=== PATIENT | female | born 1935 | race Caucasian/White ===

== ENCOUNTER 2016-12-25 09:32 | Outpatient (CLI) | payer MEDICARE ==
[2016-12-25 10:29] LABS: #Basophils 0.1 thou/uL (0.0-0.2); #Eosinphils 0.3 thou/uL (0.0-0.7); #Lymphocytes 2.3 thou/uL (1.20-3.40); #Monocytes 1.3 thou/uL (0.11-0.59); #Neutrophils 5.5 thou/uL (1.40-6.50); %Basophils 1.3 % (0.0-1.0); %Eosinophils 2.7 % (0.0-10.0); %Lymphocytes 24.7 % (21.0-51.0); %Monocytes 13.4 % (0.0-10.0); Hemoglobin 13.6 g/dL (12.0-16.0); Mean Corpuscular Hemoglobin 33.1 pg (27.0-31.0); Mean Corpuscular Volume 100.3 fl (81.0-99.0); Mean Platelet Volume 8.6 fL (7.4-10.4); Platelet Count 126 thou/uL (130-400); RBC Distribution Width 11.1 % (11.5-14.5); Red Blood Cell (RBC) Count 4.11 mill/uL (4.20-5.40); White Blood Cell (WBC) Count 9.4 thou/uL (4.8-10.8)
[2016-12-25 10:33] LABS: ALT (SGPT) 45 U/L (0-55); AST (SGOT) 25 U/L (5-34); Albumin 4.4 g/dL (3.4-4.8); Alkaline Phosphatase 63 U/L (40-150); Anion Gap 16 mmol/L (10-20); BUN (Urea Nitrogen) 28 mg/dL (9.8-20.1); Bilirubin, Total 0.7 mg/dL (0.2-1.2); Calc. Creatinine Clearance 0 mL/min (70-130); Calcium 9.2 mg/dL (7.8-10.44); Carbon Dioxide 28 mmol/L (23-31); Cardiac Risk 2.3 (Less than 4.5); Chloride 101 mmol/L (98-107); Cholesterol 218 mg/dL (< 200 Desired); Estimated GFR-MDRD 49; Globulin 2.4 g/dL (2.4-3.5); Glucose 125 mg/dL (83-110); HDL Cholesterol 94 mg/dL (>60 Neg Risk); LDL Cholesterol, Calculated 108 mg/dL; Potassium 4.6 mmol/L (3.5-5.1); Protein, Total 6.8 g/dL (5.8-8.1); Sodium 140 mmol/L (136-145); Triglycerides 80 mg/dL (Less than 150)
[2016-12-25 11:11] LABS: Bilirubin Negative (Negative); Blood, Urine Negative (Negative); Clarity Clear (Clear); Glucose, Urine (Dipstick) Negative (Negative); Leukocyte Small (Negative); Nitrite Negative (Negative); Protein, Urine (Dipstick) Negative (Neg-Trace); Specific Gravity, Urine 1.015 (1.005-1.030); Urobilinogen 0.2 mg/dL (0.2-1.0)
[2016-12-25 11:12] LABS: Free T4 (Free Thyroxine) 1.04 ng/dL (0.70-1.48); Thyroid Stimulating Hormone 0.7837 uIU/mL (0.35-4.94)
[2016-12-25 11:16] LABS: RBC/HPF 0-3 HPF (0-3); WBC/HPF 0-3 HPF (0-3)
[2016-12-25 11:18] LABS: Bacteria/HPF Rare-Few HPF (None Seen); Squamous Epithelial 0-3 HPF (0-3)
== END 2016-12-25 09:33 | disposition home or self-care (01) ==
LOC: MADLABBHPM 09:32
PROVIDERS: ATTEND Family Medicine
DX: Z00.01 Encounter for general adult medical examination with abnormal findings (principal)
CPT/HCPCS: 36415; 80053; 80061; 81001; 83036; 84439; 84443; 84481; 85025

== ENCOUNTER 2017-05-20 16:57 | Outpatient (CLI) | payer MEDICARE ==
[2017-05-20 17:34] LABS: ALT (SGPT) 22 U/L (8-55); AST (SGOT) 21 U/L (5-34); Albumin 4.2 g/dL (3.4-4.8); Alkaline Phosphatase 62 U/L (40-150); Anion Gap 15 mmol/L (10-20); BUN (Urea Nitrogen) 19 mg/dL (9.8-20.1); Bilirubin, Total 0.6 mg/dL (0.2-1.2); Calc. Creatinine Clearance 0 mL/min (70-130); Calcium 9.4 mg/dL (7.8-10.44); Carbon Dioxide 25 mmol/L (23-31); Chloride 102 mmol/L (98-107); Estimated GFR-MDRD 58; Globulin 3.1 g/dL (2.4-3.5); Glucose 145 mg/dL (83-110); Potassium 4.4 mmol/L (3.5-5.1); Protein, Total 7.3 g/dL (6.0-8.3); Sodium 138 mmol/L (136-145)
[2017-05-20 17:50] LABS: Band 1 % (5-11); Eosinophils 1 % (0-10); Hemoglobin 14.1 g/dL (12.0-16.0); Lymphocytes 26 % (21-51); MDiff Complete? YES; Mean Corpuscular HGB CONC 33.4 g/dL (32.0-36.0); Mean Corpuscular Hemoglobin 33.1 pg (27.0-31.0); Mean Corpuscular Volume 98.9 fl (81.0-99.0); Mean Platelet Volume 7.2 fL (7.4-10.4); Monocytes 6 % (0-10); Neutrophil 63 % (42-75); PLT Morphology Comment Appears Adequate; Platelet Count 161 thou/uL (130-400); RBC Distribution Width 11.5 % (11.5-14.5); Reactive Lymphocytes 3 % (0-10); Red Blood Cell (RBC) Count 4.25 mill/uL (4.20-5.40); White Blood Cell (WBC) Count 10.1 thou/uL (4.8-10.8)
== END 2017-05-20 16:58 | disposition home or self-care (01) ==
LOC: MADLABBHPM 16:57
PROVIDERS: ATTEND Family Medicine
DX: R10.13 Epigastric pain (principal); R14.0 Abdominal distension (gaseous); R19.5 Other fecal abnormalities
CPT/HCPCS: 36415; 80053; 85025

== ENCOUNTER 2017-06-01 15:51 | Outpatient (CLI) | payer MEDICARE ==
[~2017-06-01 15:51] MED LIST: Iopamidol 370 76% 100 ML VIAL ONE
--- NOTE | 2017-06-01 19:44 | CT ---
CT OF THE ABDOMEN AND PELVIS: Date: 06-01-17 Comparison: None. History: Epigastric pain, bloating, dark stool. Technique: Serial axial CT imaging at 5 mm intervals from lung bases through pubic symphysis with IV and oral contrast. Coronal reformatted imaging obtained. FINDINGS: The imaged lung bases are unremarkable. Incompletely imaged transvenous pacing device is present. No evidence for free intraperitoneal air or fluid. Bilateral total hip arthroplasties are present. There are multiple hypodensities within the hepatic parenchyma superiorly, many of which are too sma ll to characterize, likely representing small cysts. Gallbladder appears surgically absent. The sple en, pancreas, adrenal glands, and kidneys demonstrate no acute findings. Duodenal diverticulum noted . Streak artifact from bilateral hip arthroplasties slightly limits assessment of the pelvis. Scatte red diverticula noted in the region of the sigmoid colon. No evidence for diverticulitis. No evidenc e for bowel inflammatory change/bowel obstruction. Stomach is decompressed and not well assessed on this exam. There is extensive atherosclerotic calcification of the abdominal aorta and its branches. No pelvic, mesenteric or retroperitoneal lymphadenopathy is seen. There is prominent multilevel deg enerative change seen throughout the spine, especially the lumbar spine, with associated dextroscoli osis. IMPRESSION: 1. Numerous incidental findings as described above. No evidence for free intraperitoneal air or flui d, bowel inflammatory change or bowel obstruction. POS: JASS
== END 2017-06-01 15:52 | disposition home or self-care (01) ==
LOC: MADCT 15:51
PROVIDERS: ATTEND Family Medicine
DX: R10.13 Epigastric pain (principal); R14.0 Abdominal distension (gaseous); R19.5 Other fecal abnormalities
CPT/HCPCS: 36415; 74177; 82565

== ENCOUNTER 2017-12-04 14:50 | Outpatient (CLI) | payer MEDICARE ==
[2017-12-04 15:35] LABS: #Basophils 0.1 thou/uL (0.0-0.2); #Eosinphils 0.3 thou/uL (0.0-0.7); #Lymphocytes 1.9 thou/uL (1.20-3.40); #Monocytes 1.1 thou/uL (0.11-0.59); #Neutrophils 6.4 thou/uL (1.40-6.50); %Basophils 1.3 % (0.0-1.0); %Lymphocytes 19.6 % (21.0-51.0); %Monocytes 11.5 % (0.0-10.0); %Neutrophils 64.7 % (42.0-75.0); Hemoglobin 13.2 g/dL (12.0-16.0); Mean Corpuscular HGB CONC 33.5 g/dL (32.0-36.0); Mean Corpuscular Hemoglobin 33.9 pg (27.0-31.0); Mean Platelet Volume 7.7 fL (7.4-10.4); Platelet Count 160 thou/uL (130-400); RBC Distribution Width 11.9 % (11.5-14.5); White Blood Cell (WBC) Count 9.8 thou/uL (4.8-10.8)
[2017-12-04 15:47] LABS: ALT (SGPT) 17 U/L (8-55); AST (SGOT) 21 U/L (5-34); Albumin 3.9 g/dL (3.4-4.8); Alkaline Phosphatase 66 U/L (40-150); Anion Gap 17 mmol/L (10-20); BUN (Urea Nitrogen) 17 mg/dL (9.8-20.1); Bilirubin, Total 0.8 mg/dL (0.2-1.2); Calc. Creatinine Clearance 0 mL/min (70-130); Calcium 9.3 mg/dL (7.8-10.44); Carbon Dioxide 26 mmol/L (23-31); Cardiac Risk 3.4 (Less than 4.5); Chloride 102 mmol/L (98-107); Cholesterol 158 mg/dl (< 200 Desired); Estimated GFR-MDRD 55; Glucose 142 mg/dL (83-110); HDL Cholesterol 47 mg/dL (>60 Neg Risk); LDL Cholesterol, Calculated 75 mg/dL; Potassium 4.8 mmol/L (3.5-5.1); Protein, Total 6.9 g/dL (6.0-8.3); Sodium 140 mmol/L (136-145); Triglycerides 180 mg/dL (Less than 150)
[2017-12-04 20:27] LABS: Hemoglobin A1c 6.8 % (4.0-6.0)
[2017-12-04 20:47] LABS: Free T4 (Free Thyroxine) 1.19 ng/dL (0.70-1.48)
== END 2017-12-04 14:51 | disposition home or self-care (01) ==
LOC: MADLABBHPM 14:50
PROVIDERS: ATTEND Family Medicine
DX: E11.9 Type 2 diabetes mellitus without complications (principal); E78.5 Hyperlipidemia, unspecified; E03.9 Hypothyroidism, unspecified; F17.200 Nicotine dependence, unspecified, uncomplicated; M35.3 Polymyalgia rheumatica; K21.9 Gastro-esophageal reflux disease without esophagitis
CPT/HCPCS: 36415; 80053; 80061; 83036; 84439; 84443; 85025

== ENCOUNTER 2018-08-27 14:05 | Outpatient (CLI) | payer MEDICARE ==
--- NOTE | 2018-08-27 16:00 | CT ---
CT ABDOMEN AND PELVIS WITH IV CONTRAST 08/27/18 HISTORY: Change in stool caliber. Shortness of breath and abdominal bloating. COMPARISON: 06/01/17. FINDINGS: Again noted is partial visualization of AICD leads. Postsurgical changes related to cholecystectomy a re again noted. There are stable hypodense cystic lesions within each lobe of the liver, probably rel ated to hepatic cysts. Calcification is seen near the region of the splenic hilum which may represen t a calcified granuloma or possibly peripherally calcified splenic cystic lesion. This measures 8 mm and is stable in size. The pancreas, bilateral adrenal glands, kidneys, and opacified bowel demonstrate a normal CT appeara nce. There is colonic diverticulosis. Dense vascular calcifications are seen in the abdominal aorta involv ing the iliac arteries. There are bilateral total hip prosthesis resulting in significant spray artifact in the pelvis limiti ng evaluation of the pelvic structures including urinary bladder. The uterus again appears absent lik marilu related to prior hysterectomy. Multilevel degenerative changes again see in the lumbar spine with right convexed scoliosis. There is right lateral subluxation of L4 on L5 which is a stable finding. Previously seen duodenal diverticulum involving the second portion of the duodenum is again noted. There has been no interval change when compared to the prior exam. There is atelectasis present at each lung base. IMPRESSION: 1. Stable CT scan of the abdomen and pelvis without evidence of an acute abnormality identified. 2. Multiple incidental findings are as described above. POS: JASS
== END 2018-08-27 14:06 | disposition home or self-care (01) ==
LOC: MADLABBHPM 14:05
PROVIDERS: ATTEND Family Medicine
DX: R14.0 Abdominal distension (gaseous) (principal); R10.84 Generalized abdominal pain; R19.4 Change in bowel habit; Z87.19 Personal history of other diseases of the digestive system
CPT/HCPCS: 36415; 74177; 82565

== ENCOUNTER 2018-11-24 14:47 | Outpatient (CLI) | payer MEDICARE ==
[2018-11-24 15:17] LABS: #Basophils 0.1 thou/uL (0.0-0.2); #Eosinphils 0.2 thou/uL (0.0-0.7); #Lymphocytes 1.7 thou/uL (1.20-3.40); #Neutrophils 7.7 thou/uL (1.40-6.50); %Basophils 0.8 % (0.0-1.0); %Eosinophils 1.8 % (0.0-10.0); %Lymphocytes 15.9 % (21.0-51.0); %Monocytes 9.5 % (0.0-10.0); Hemoglobin 13.4 g/dL (12.0-16.0); Mean Corpuscular HGB CONC 33.4 g/dL (32.0-36.0); Mean Corpuscular Hemoglobin 33.6 pg (27.0-31.0); Mean Corpuscular Volume 100.7 fL (78.0-98.0); Mean Platelet Volume 6.9 fL (7.4-10.4); Platelet Count 179 thou/uL (130-400); RBC Distribution Width 11.9 % (11.5-14.5); White Blood Cell (WBC) Count 10.7 thou/uL (4.8-10.8)
[2018-11-24 15:31] LABS: ALT (SGPT) 21 U/L (8-55); AST (SGOT) 21 U/L (5-34); Alkaline Phosphatase 73 U/L (40-150); Anion Gap 18 mmol/L (10-20); BUN (Urea Nitrogen) 17 mg/dL (9.8-20.1); Bilirubin, Total 0.6 mg/dL (0.2-1.2); Calc. Creatinine Clearance 0 mL/min (70-130); Calcium 9.5 mg/dL (7.8-10.44); Carbon Dioxide 24 mmol/L (23-31); Chloride 101 mmol/L (98-107); Estimated GFR-MDRD 51; Glucose 259 mg/dL (83-110); Potassium 4.5 mmol/L (3.5-5.1); Sodium 138 mmol/L (136-145)
== END 2018-11-24 14:48 | disposition home or self-care (01) ==
LOC: MADLAB 14:47
PROVIDERS: ATTEND Pain Medicine Pain Medicine
DX: Z01.812 Encounter for preprocedural laboratory examination (principal); E78.00 Pure hypercholesterolemia, unspecified
CPT/HCPCS: 36415; 80053; 85025

== ENCOUNTER 2018-12-14 16:41 | Emergency (ER) | payer MEDICARE | END 2018-12-14 17:44 | disposition home or self-care (01) | LOC: MADERS 16:41 | DX: E09.9 Drug or chemical induced diabetes mellitus without complications (principal); T38.0X5A Adverse effect of glucocorticoids and synthetic analogues, initial encounter; I50.9 Heart failure, unspecified; J45.909 Unspecified asthma, uncomplicated; I47.1 Supraventricular tachycardia; K21.9 Gastro-esophageal reflux disease without esophagitis; F41.9 Anxiety disorder, unspecified; G62.9 Polyneuropathy, unspecified; E87.1 Hypo-osmolality and hyponatremia; E05.90 Thyrotoxicosis, unspecified without thyrotoxic crisis or storm; Z79.899 Other long term (current) drug therapy; Z79.82 Long term (current) use of aspirin; Z79.1 Long term (current) use of non-steroidal anti-inflammatories (NSAID); Z79.891 Long term (current) use of opiate analgesic | CPT/HCPCS: 36416; 99283 ==

== ENCOUNTER 2019-09-27 13:24 | Inpatient (IN) | payer MEDICARE ==
[2019-09-27 16:25] VITALS: BMI 22.8
[2019-09-27] MEDS ORDERED: Acetaminophen 325 MG TAB PO PRN (20:13)
[2019-09-27] MEDS ORDERED: Ondansetron ODT 4 MG TAB PO PRN (20:13)
[2019-09-27] MEDS ORDERED: Lidocaine Viscous Sol 2% 15 ml UD Cup SSW PRN (20:17)
[2019-09-27] MEDS ORDERED: Diclofenac Sodium [Diclofenac Sodium 1% Gel] 2 GM TOP PRN (20:17)
[2019-09-27] MEDS ORDERED: Nitroglycerin 0.4 MG TAB (25 Tab Bottle) SL PRN (20:17)
[2019-09-27] MEDS: Potassium Chloride 20 MEQ TAB PO SCH (20:54)
[2019-09-27] MEDS: Ferrous Sulfate 325 MG TAB PO SCH (20:55)
[2019-09-27] MEDS: Gabapentin 300 MG CAP PO SCH (20:55)
[2019-09-27] MEDS ORDERED: Furosemide 40 MG TAB PO SCH (21:00)
[2019-09-27] MEDS ORDERED: Atorvastatin Calcium 10 MG TAB PO SCH (21:00)
[2019-09-27] MEDS ORDERED: Loratadine 10 MG TAB PO SCH (21:00)
[2019-09-27] MEDS ORDERED: Losartan 25 MG TAB PO SCH (21:00)
[2019-09-27] MEDS: Magnesium Oxide [Magnesium] 250 MG PO SCH (21:17)
[2019-09-27] MEDS: Ticagrelor [Brilinta] 90 MG PO SCH (21:17)
[2019-09-27] MEDS: HYDROcodone/Acetaminophen 7.5/325 mg Tablet PO PRN (22:53)
[2019-09-28 05:31] LABS: #Basophils 0.1 thou/uL (0.0-0.2); #Eosinphils 0.3 thou/uL (0.0-0.7); #Lymphocytes 1.5 thou/uL (1.20-3.40); #Monocytes 1.5 thou/uL (0.11-0.59); #Neutrophils 6.9 thou/uL (1.40-6.50); %Basophils 1.2 % (0.0-1.0); %Eosinophils 3.1 % (0.0-10.0); %Lymphocytes 14.7 % (21.0-51.0); %Monocytes 14.5 % (0.0-10.0); %Neutrophils 66.5 % (42.0-75.0); Hemoglobin 10.9 g/dL (12.0-16.0); Mean Corpuscular HGB CONC 30.4 g/dL (32.0-36.0); Mean Corpuscular Hemoglobin 30.3 pg (27.0-31.0); Mean Corpuscular Volume 99.5 fL (78.0-98.0); Mean Platelet Volume 6.8 fL (7.4-10.4); Platelet Count 328 thou/uL (130-400); RBC Distribution Width 15.6 % (11.5-14.5); Red Blood Cell (RBC) Count 3.61 mill/uL (4.20-5.40); White Blood Cell (WBC) Count 10.4 thou/uL (4.8-10.8)
[2019-09-28 05:47] LABS: ALT (SGPT) 21 U/L (8-55); AST (SGOT) 26 U/L (5-34); Albumin 3.1 g/dL (3.4-4.8); Alkaline Phosphatase 58 U/L (40-110); Anion Gap 17 mmol/L (10-20); BUN (Urea Nitrogen) 14 mg/dL (9.8-20.1); Bilirubin, Total 0.5 mg/dL (0.2-1.2); Calc. Creatinine Clearance 54 mL/min (70-130); Calcium 8.3 mg/dL (7.8-10.44); Carbon Dioxide 22 mmol/L (23-31); Chloride 104 mmol/L (98-107); Estimated GFR-MDRD 83; Globulin 3.4 g/dL (2.4-3.5); Glucose 103 mg/dL (83-110); Potassium 4.1 mmol/L (3.5-5.1); Protein, Total 6.5 g/dL (6.0-8.3); Sodium 139 mmol/L (136-145)
[2019-09-28 06:53] VITALS: TEMP 97.7
--- NOTE | 2019-09-28 07:36 | HP ---
PRIMARY CARE PHYSICIAN: Rekha Luo MD REASON FOR ADMISSION: Hypotension, recent LAD and RCA stent, generalized weakness and acute respiratory distress. BRIEF HISTORY AND PHYSICAL: Ms. Pollock is an 84-year-old female, who was admitted to [facility] in [place], August 24, 2019 for an elective cardiac evaluation following worsening coronary artery disease and angina. The patient had an abnormal nuclear stress test and she has been having worsening of her symptoms. She does have a history of coronary artery disease, congestive heart failure, multiple extensive medical conditions. The patient underwent a cardiac catheterization and was noted to have an LAD and RCA stenosis. Due to multivessel coronary artery disease, a decision was made to go ahead and admit the patient into the hospital for possible multivessel stenting. The patient states she underwent procedure on August 25, 2019. The patient states postoperatively the hospitalization was complicated by fluid overload and she went into CHF. She went into acute respiratory failure and she admitted to be intubated. During this process, the patient unfortunately also suffering aspiration pneumonia and needed to be on oxygen and antibiotics. Majority of the history gotten from the patient and her daughter who stated that she sustained worsening of chronic anemia and also had to be transfused. The patient spent a total of one month in the hospital after a stent placement and she was severely deconditioned and the decision was made to transfer the patient to a skilled rehabilitation center. The patient was subsequently transferred to [facility] on Thursday of September 23, 2019. The patient was admitted under the medical physicist, Dr. Aguayo, but she eventually called my office requesting i take over her care since I have been her primary care doctor. Upon evaluation of patient in [place] facility today, she was very weak. The patient and daughter were very tearful, state she has not had any physical therapy since being in facility as facility does not have in House PT. She states her blood pressure has been very labile, low and the admitting physician, Dr. Aguayo has changed multiple of her medications, which were the medications the inspector crystal put her on. The patient and daughter were not comfortable for the patient to continue to stay in detention facility and requested to be transferred out due to recent cardiac surgery, hypotensive episode, and physical decondition. The patient was subsequently transferred to the medical floor here at [facility] in [place] to start physical therapy and adequate blood pressure management. Upon evaluation of the patient, she denies any chest pain. She complains of shortness of breath and still needing oxygen occasionally. The patient denies any palpitations. She states she has followup appointment with inspector crystal, Dr. Mercado at 11:30 a.m. tomorrow. She complains of being very deconditioned. She denies any nausea, vomiting, or dizziness. PAST MEDICAL HISTORY: Congestive heart failure, hyperlipidemia, hypertension, diabetes type 2, GERD, hiatal hernia, lactose intolerance, osteopenia, stasis dermatitis, asthma, Graves disease, polymyalgia rheumatica, arthritis, fibromyalgia, spinal stenosis, peripheral neuropathy. PAST SURGICAL HISTORY: Appendectomy, partial hysterectomy, cholecystectomy, right and left total hip replacements, eye surgery, pilonidal cyst removed, radioactive iodine treatment of thyroid, ICD battery replacement, CAD with stent placement in the LAD and RCA. ALLERGIES: ATENOLOL, CEFAZOLIN, CLARITHROMYCIN, SULFA, LEVAQUIN, BENADRYL. FAMILY HISTORY: Noncontributory. SOCIAL HISTORY: The patient lives alone. She denies any current tobacco use, alcohol use, or illicit drug use. MEDICATIONS: 1. Lipitor 20 at bedtime. 2. Calcium gluconate 650 b.i.d. 3. Carboxymethylcellulose one drop to each eye p.r.n. t.i.d. 4. Zyrtec 10 at bedtime. 5. Vitamin D3 2000 units daily. 6. Diclofenac topical 4 times a day. 7. Nexium 40 daily. 8. Ferrous sulfate 325 b.i.d. 9. Furosemide 40 b.i.d. 10. Gabapentin 300 t.i.d. 11. [place] 7.5/325 b.i.d. 12. Lactaid 3000 units t.i.d. before meals. 13. Levothyroxine 75 daily. 14. Lidocaine Viscous p.r.n. q.3 hours for dry mouth. 15. Losartan at bedtime 25 mg. 16. Lysine 500 daily. 17. Metoprolol succinate 25 b.i.d. 18. Magnesium oxide 250 q.i.d. 19. Multivitamin daily. 20. Nitroglycerin 0.4 every 5 minutes as needed p.r.n. chest pain. 21. Potassium chloride 20 mEq t.i.d. 22. Prednisone 2 mg daily. 23. Super C Complex. 24. Super B Complex. 25. Brilinta 90 b.i.d. 26. Aspirin 81 mg daily. REVIEW OF SYSTEMS: GENERAL: The patient complains of generalized weakness and fatigue. CARDIOVASCULAR: Denies chest pain, shortness of breath, palpitations. Complains of blood pressure issues. RESPIRATORY: Complaints of cough and occasional shortness of breath. GASTROINTESTINAL: Denies nausea, vomiting, diarrhea, or constipation. GENITOURINARY: Denies dysuria, hematuria, frequency, or urgency. MUSCULOSKELETAL: Complains of chronic back pain. NEUROLOGICAL: Denies any focal deficits. SKIN: Complains of some bruising from hospitalization. PHYSICAL EXAMINATION: VITAL SIGNS: Temperature 97.9, pulse 107, respirations 16, and O2 saturation 93 % on room air, blood pressure 113/70. GENERAL: The patient is alert, awake, oriented x3, in no apparent distress, sitting on the bed. HEENT: Normocephalic, atraumatic. Moist oral mucous membranes. Pupils are equal and reactive to light. NECK: Supple. No JVD. CARDIOVASCULAR: S1, S2. Regular rate and rhythm. No murmurs. LUNGS: Clear to auscultation bilaterally. No wheezing. ABDOMEN: Positive bowel sounds. Soft, nontender, nondistended. No guarding. No rebound. EXTREMITIES: No edema or erythema. NEUROLOGICAL: No focal deficits. ASSESSMENT: 1. Physical debility. 2. Labile blood pressure. 3. Status post coronary artery disease with multivessel stent placement. 4. Diabetes type 2.. 6. Fibromyalgia. 7. Arthritis. 8. polymyalgia rheumatica. 9. Dzxvg-rp-nabxidx anemia. 10. Congestive heart failure. PLAN: The patient has been admitted to [place] [facility]. We will consult Physical Therapy to help with skilled rehabilitation and gait strengthening prior to discharge to her home. We will consult Occupational Therapy to help with activities of daily living. We will monitor the patient closely for any hemodynamic instability. We will adjust blood pressure medicine and monitor the blood pressure closely and make changes as needed. Due to patient's CHF, we will be very careful with any fluid intake. We will place the patient on a strict I's and O's. We will monitor weight weekly. Acute on chronic anemia, we will monitor CBC closely. We will restart all patient's home medication. Anticipated length of stay greater than 3 days. The patient will benefit from rehabilitation also prior to discharge to her home. CODE STATUS: The patient is a DNR. This was confirmed by her with her daughter in the room. Job ID: [id number] [facility]
[2019-09-28] MEDS ORDERED: LACTASE 3000 UNIT PO SCH (08:00)
[2019-09-28] MEDS: HYDROcodone/Acetaminophen 7.5/325 mg Tablet PO PRN (08:14)
[2019-09-28] MEDS: Furosemide 40 MG TAB PO SCH ×2 (08:16→15:36)
[2019-09-28] MEDS: Potassium Chloride 20 MEQ TAB PO SCH ×2 (08:17→15:37)
[2019-09-28] MEDS: Gabapentin 300 MG CAP PO SCH ×2 (08:18→15:36)
[2019-09-28] MEDS: Ferrous Sulfate 325 MG TAB PO SCH (08:18)
[2019-09-28] MEDS: Magnesium Oxide [Magnesium] 250 MG PO SCH ×2 (08:25→15:35)
[2019-09-28] MEDS: Ticagrelor [Brilinta] 90 MG PO SCH (08:25)
[2019-09-28] MEDS ORDERED: HYDROcodone/Acetaminophen 7.5/325 mg Tablet PO SCH ×2 (08:30→21:00)
[2019-09-28] MEDS ORDERED: CALCIUM CARBONATE 600 MG PO SCH ×2 (09:00→21:00)
[2019-09-28] MEDS ORDERED: FLU VACC TS2019-20(65YR UP)/PF 180 MCG/0.5 ML SYRINGE IM ONE (09:00)
[2019-09-28] MEDS ORDERED: predniSONE 20 MG TAB PO SCH (09:00)
[2019-09-28] MEDS ORDERED: Lysine 500 MG TAB PO SCH (09:00)
[2019-09-28] MEDS ORDERED: Levothyroxine Sodium 75 MCG TAB PO SCH (09:00)
[2019-09-28] MEDS ORDERED: CALCIUM GLUCONATE PO SCH (09:00)
[2019-09-28] MEDS ORDERED: Stress 600 With Zinc 1 TAB PO SCH (09:00)
[2019-09-28] MEDS ORDERED: Prevnar 13-Val Conj/PF 0.5 ML SYRINGE IM ONE (09:00)
[2019-09-28] MEDS ORDERED: Multivit, Therapeutic 1 TAB PO SCH ×2 (09:00→14:00)
[2019-09-28] MEDS ORDERED: LACTASE 3000 UNIT PO PRN (09:17)
[2019-09-28 10:08] VITALS: BP 135/62
[2019-09-28] MEDS ORDERED: metFORMIN 500 MG TAB PO SCH (17:00)
[2019-09-28] MEDS ORDERED: Cetirizine HCl 10 MG TAB PO SCH (21:00)
[2019-09-29] MEDS ORDERED: Levothyroxine Sodium 75 MCG TAB PO SCH (06:00)
--- NOTE | 2019-09-30 06:02 | PQF ---
SAP Heavy Truck Mechanic Crystal Reports Winform ViewerSARAH MORAES STEVEN MARQUESVIRGIEAyaan [id number] CLINICAL DOCUMENTATION CLARIFICATION FORM: POST DISCHARGE Addendum to original discharge summary date: ____09/28/2019 Late entry note date: __ DATE: 09/30/2019 ATTN: EYAD MARQUES Please exercise your independent, professional judgment in responding to the clarification form. Clinical indicators are provided on the bottom of this form for your review Please check appropriate box(s): Kindly Provide following condition was still active or not [ ] Aspiration Pneumonia was still actively present [ x ] Aspiration Pneumonia was already treated not actively present [ ] Other diagnosis [ ] Unable to determine In addition, please specify: Present on Admission (POA): [ ] Yes [x ] No [ ] Unable to determine For continuity of documentation, please document condition throughout progress notes and discharge summary. Thank You. CLINICAL INDICATORS - SIGNS / SYMPTOMS / LABS Aspiration Pneumonia - Documented in Progress notes Status post cardiac catheterization - Documented in H&P The patient states postoperatively complicated by fluid overload and she went into CHF - Documented in H&P During the process patient unfortunately also suffering aspiration pneumonia - Documented in H&P RISK FACTORS CAD CHF TREATMENTS: We will monitor patient closely and hemodynamic instability - Documented in H&P Completed antibiotics - Documented in Progress notes [employer] Heavy Truck Mechanic Crystal Reports Winform Viewer(This form is maintained as a part of the permanent medical record) 2014 [employer]. All Rights Reserved [email or web address] [not provided] MTDD
== END 2019-09-28 15:46 | disposition swing bed (61) | DRG 316 ==
LOC: MADMS 16:08
PROVIDERS: ADMIT Family Medicine; ATTEND Family Medicine
DX: R09.89 Other specified symptoms and signs involving the circulatory and respiratory systems (principal); R53.1 Weakness; I11.0 Hypertensive heart disease with heart failure; I50.9 Heart failure, unspecified; R53.81 Other malaise; E11.9 Type 2 diabetes mellitus without complications; E78.5 Hyperlipidemia, unspecified; K21.9 Gastro-esophageal reflux disease without esophagitis; M19.91 Primary osteoarthritis, unspecified site; M79.7 Fibromyalgia; Z66 Do not resuscitate; D64.9 Anemia, unspecified; Z95.5 Presence of coronary angioplasty implant and graft; Z88.2 Allergy status to sulfonamides; Z88.8 Allergy status to other drugs, medicaments and biological substances; Z79.899 Other long term (current) drug therapy; Z79.82 Long term (current) use of aspirin
CPT/HCPCS: 36415; 36416; 80053; 85025; J7512

== ENCOUNTER 2019-09-28 15:49 | Inpatient (IN) | payer MEDICARE ==
[2019-09-28] MEDS ORDERED: Nitroglycerin 0.4 MG TAB (25 Tab Bottle) SL PRN (16:35)
[2019-09-28] MEDS ORDERED: Lidocaine Viscous Sol 2% 15 ml UD Cup SSW PRN (16:35)
[2019-09-28] MEDS ORDERED: DICLOFENAC GEL TOP PRN (16:35)
[2019-09-28] MEDS ORDERED: Magnesium Oxide 400 MG TAB PO SCH (17:00)
[2019-09-28] MEDS: metFORMIN 500 MG TAB PO SCH ×2 (17:20→17:21)
[2019-09-28] MEDS: CETIRIZINE 10 MG TABLET PO SCH (20:36)
[2019-09-28] MEDS: HYDROcodone/Acetaminophen 7.5/325 mg Tablet PO SCH (20:36)
[2019-09-28] MEDS: Atorvastatin Calcium 10 MG TAB PO SCH (20:37)
[2019-09-28] MEDS: Gabapentin 300 MG CAP PO SCH (20:37)
[2019-09-28] MEDS: Ferrous Sulfate 325 MG TAB PO SCH (20:38)
[2019-09-28] MEDS: Potassium Chloride 20 MEQ TAB PO SCH (20:38)
[2019-09-28] MEDS: Furosemide 40 MG TAB PO SCH (20:39)
[2019-09-28] MEDS: MAGNESIUM OXIDE 250 MG PO SCH (20:40)
[2019-09-28] MEDS: BRILINTA 90 MG PO SCH (20:46)
[2019-09-28] MEDS ORDERED: Loratadine 10 MG TAB PO SCH (21:00)
[2019-09-28] MEDS ORDERED: Calcium Carbonate 500 MG TAB PO SCH (21:00)
[2019-09-28] MEDS ORDERED: CALCIUM GLUCONATE PO SCH (21:00)
[2019-09-28] MEDS ORDERED: Calcium Carbonate 600 MG TAB PO SCH (21:00)
[2019-09-29] MEDS: Levothyroxine Sodium 75 MCG TAB PO SCH (04:59)
[2019-09-29] MEDS: NEXIUM 40 MG PO SCH (05:01)
[2019-09-29] MEDS: HYDROcodone/Acetaminophen 7.5/325 mg Tablet PO SCH ×2 (07:48→20:14)
[2019-09-29] MEDS: metFORMIN 500 MG TAB PO SCH ×2 (07:50→17:08)
[2019-09-29] MEDS: Aspirin 81 mg Enteric Coated Tablet PO SCH (08:17)
[2019-09-29] MEDS: Potassium Chloride 20 MEQ TAB PO SCH ×3 (08:17→20:16)
[2019-09-29] MEDS: Furosemide 40 MG TAB PO SCH (08:17)
[2019-09-29] MEDS: Stress 600 With Zinc 1 TAB PO SCH (08:17)
[2019-09-29] MEDS: Ferrous Sulfate 325 MG TAB PO SCH ×2 (08:17→20:16)
[2019-09-29] MEDS: MAGNESIUM OXIDE 250 MG PO SCH ×4 (08:18→20:18)
[2019-09-29] MEDS: Gabapentin 300 MG CAP PO SCH ×3 (08:18→20:17)
[2019-09-29] MEDS: BRILINTA 90 MG PO SCH ×2 (08:19→20:17)
[2019-09-29] MEDS: Lysine 500 MG TAB PO SCH (08:25)
[2019-09-29] MEDS: [UNRECOGNIZED DRUG - SUPPLY] PO SCH (08:31)
[2019-09-29] MEDS ORDERED: predniSONE 20 MG TAB PO SCH (09:00)
--- NOTE | 2019-09-29 13:36 | RAD ---
CHEST PA AND LATERAL: HISTORY: Shortness of breath. COMPARISON: None. FINDINGS: Pacemaker: Left-sided transvenous pacemaker/defibrillator with lead positioned in the right atrium, r ight ventricle and coronary sinus. Heart: Upper normal cardiac silhouette. Aorta: Atherosclerosis of the aorta. Pulmonary vessels: Mildly prominent pulmonary vessels. Costophrenic angles: There are bilateral pleural effusions, left greater than right. Lungs: Patchy interstitial opacities with alveolar opacities throughout the lung parenchyma which may represent volume overload. On the lateral projection, possible pleural-based opacity, incompletely evaluated. Better interrogation with chest CT is recommended. Pneumothorax: No pneumothorax. Osseous structures: No osseous abnormalities. Incidental hiatal hernia. IMPRESSION: 1. Atherosclerosis. 2. Congestive heart failure. 3. Pleural-based density noted on the lateral chest radiograph. Better interrogation with chest CT is recommended. CODE T Transcribed Date/Time: 09/29/2019 1:42 PM
[2019-09-29] MEDS: Multivit, Therapeutic 1 TAB PO SCH (14:37)
[2019-09-29] MEDS: Acetaminophen 325 MG TAB PO PRN (17:07)
[2019-09-29] MEDS ORDERED: Furosemide 40 MG TAB PO SCH (17:30)
[2019-09-29] MEDS: Atorvastatin Calcium 10 MG TAB PO SCH (20:16)
[2019-09-29] MEDS: Calcium Carbonate 600 MG TAB PO SCH (20:18)
[2019-09-29] MEDS: CETIRIZINE 10 MG TABLET PO SCH (20:18)
[2019-09-30] MEDS: NEXIUM 40 MG PO SCH (05:58)
[2019-09-30] MEDS: Levothyroxine Sodium 75 MCG TAB PO SCH (05:58)
[2019-09-30] MEDS: HYDROcodone/Acetaminophen 7.5/325 mg Tablet PO SCH ×2 (08:13→20:46)
[2019-09-30] MEDS: Aspirin 81 mg Enteric Coated Tablet PO SCH (08:14)
[2019-09-30] MEDS: metFORMIN 500 MG TAB PO SCH ×2 (08:14→17:03)
[2019-09-30] MEDS: Furosemide 40 MG TAB PO SCH ×2 (08:15→13:44)
[2019-09-30] MEDS: Ferrous Sulfate 325 MG TAB PO SCH ×2 (08:15→20:45)
[2019-09-30] MEDS: Lysine 500 MG TAB PO SCH (08:15)
[2019-09-30] MEDS: Gabapentin 300 MG CAP PO SCH ×3 (08:15→20:45)
[2019-09-30] MEDS: BRILINTA 90 MG PO SCH ×2 (08:16→20:52)
[2019-09-30] MEDS: MAGNESIUM OXIDE 250 MG PO SCH ×4 (08:17→20:53)
[2019-09-30] MEDS: Potassium Chloride 20 MEQ TAB PO SCH ×3 (08:17→20:45)
[2019-09-30] MEDS: [UNRECOGNIZED DRUG - SUPPLY] PO SCH (08:17)
[2019-09-30] MEDS: Stress 600 With Zinc 1 TAB PO SCH (08:18)
[2019-09-30] MEDS: predniSONE 1 MG TAB PO SCH (08:18)
[2019-09-30] MEDS: Multivit, Therapeutic 1 TAB PO SCH (13:44)
[2019-09-30] MEDS ORDERED: Ondansetron ODT 4 MG TAB PO PRN (18:13)
[2019-09-30] MEDS: Atorvastatin Calcium 10 MG TAB PO SCH (20:46)
[2019-09-30] MEDS: Calcium Carbonate 600 MG TAB PO SCH (20:52)
[2019-09-30] MEDS: CETIRIZINE 10 MG TABLET PO SCH (20:53)
[2019-10-01] MEDS: Levothyroxine Sodium 75 MCG TAB PO SCH (06:02)
[2019-10-01] MEDS: NEXIUM 40 MG PO SCH (06:03)
[2019-10-01] MEDS: Gabapentin 300 MG CAP PO SCH ×3 (08:03→20:46)
[2019-10-01] MEDS: predniSONE 1 MG TAB PO SCH (08:03)
[2019-10-01] MEDS: Stress 600 With Zinc 1 TAB PO SCH (08:04)
[2019-10-01] MEDS: Potassium Chloride 20 MEQ TAB PO SCH ×3 (08:04→20:46)
[2019-10-01] MEDS: HYDROcodone/Acetaminophen 7.5/325 mg Tablet PO SCH ×2 (08:05→20:46)
[2019-10-01] MEDS: Furosemide 40 MG TAB PO SCH ×2 (08:07→13:19)
[2019-10-01] MEDS: metFORMIN 500 MG TAB PO SCH ×2 (08:07→16:07)
[2019-10-01] MEDS: Lysine 500 MG TAB PO SCH (08:07)
[2019-10-01] MEDS: Ferrous Sulfate 325 MG TAB PO SCH ×2 (08:07→20:45)
[2019-10-01] MEDS: Aspirin 81 mg Enteric Coated Tablet PO SCH (08:07)
[2019-10-01] MEDS: [UNRECOGNIZED DRUG - SUPPLY] PO SCH (08:08)
[2019-10-01] MEDS: BRILINTA 90 MG PO SCH ×2 (08:11→20:51)
[2019-10-01] MEDS: MAGNESIUM OXIDE 250 MG PO SCH ×4 (08:11→20:51)
[2019-10-01] MEDS: Multivit, Therapeutic 1 TAB PO SCH (13:19)
[2019-10-01] MEDS: Atorvastatin Calcium 10 MG TAB PO SCH (20:44)
[2019-10-01] MEDS: Calcium Carbonate 600 MG TAB PO SCH (20:54)
[2019-10-01] MEDS: CETIRIZINE 10 MG TABLET PO SCH (20:54)
[2019-10-02] MEDS: Levothyroxine Sodium 75 MCG TAB PO SCH (05:44)
[2019-10-02] MEDS: NEXIUM 40 MG PO SCH (05:45)
[2019-10-02] MEDS: Potassium Chloride 20 MEQ TAB PO SCH ×3 (08:17→21:18)
[2019-10-02] MEDS: predniSONE 1 MG TAB PO SCH (08:17)
[2019-10-02] MEDS: metFORMIN 500 MG TAB PO SCH ×2 (08:17→16:45)
[2019-10-02] MEDS: Stress 600 With Zinc 1 TAB PO SCH (08:17)
[2019-10-02] MEDS: Gabapentin 300 MG CAP PO SCH ×3 (08:18→21:11)
[2019-10-02] MEDS: HYDROcodone/Acetaminophen 7.5/325 mg Tablet PO SCH ×2 (08:18→21:11)
[2019-10-02] MEDS: Aspirin 81 mg Enteric Coated Tablet PO SCH (08:18)
[2019-10-02] MEDS: Ferrous Sulfate 325 MG TAB PO SCH ×2 (08:19→21:11)
[2019-10-02] MEDS: Furosemide 40 MG TAB PO SCH ×2 (08:19→13:26)
[2019-10-02] MEDS: [UNRECOGNIZED DRUG - SUPPLY] PO SCH (08:20)
[2019-10-02] MEDS: BRILINTA 90 MG PO SCH ×2 (08:20→21:25)
[2019-10-02] MEDS: Lysine 500 MG TAB PO SCH (08:20)
[2019-10-02] MEDS: MAGNESIUM OXIDE 250 MG PO SCH ×4 (08:20→21:27)
[2019-10-02] MEDS: Multivit, Therapeutic 1 TAB PO SCH (13:25)
[2019-10-02] MEDS: Atorvastatin Calcium 10 MG TAB PO SCH (21:11)
[2019-10-02] MEDS: Calcium Carbonate 600 MG TAB PO SCH (21:26)
[2019-10-02] MEDS: CETIRIZINE 10 MG TABLET PO SCH (21:27)
[2019-10-03] MEDS: Levothyroxine Sodium 75 MCG TAB PO SCH (05:17)
[2019-10-03] MEDS: NEXIUM 40 MG PO SCH (05:17)
[2019-10-03] MEDS: HYDROcodone/Acetaminophen 7.5/325 mg Tablet PO SCH ×2 (08:43→20:46)
[2019-10-03] MEDS: Ferrous Sulfate 325 MG TAB PO SCH ×2 (08:45→20:48)
[2019-10-03] MEDS: Furosemide 40 MG TAB PO SCH ×2 (08:45→13:37)
[2019-10-03] MEDS: Potassium Chloride 20 MEQ TAB PO SCH ×3 (08:45→17:27)
[2019-10-03] MEDS: Aspirin 81 mg Enteric Coated Tablet PO SCH (08:45)
[2019-10-03] MEDS: metFORMIN 500 MG TAB PO SCH ×2 (08:46→17:27)
[2019-10-03] MEDS: Stress 600 With Zinc 1 TAB PO SCH (08:46)
[2019-10-03] MEDS: Gabapentin 300 MG CAP PO SCH ×3 (08:46→20:48)
[2019-10-03] MEDS: Lysine 500 MG TAB PO SCH (08:46)
[2019-10-03] MEDS: BRILINTA 90 MG PO SCH ×2 (08:47→20:49)
[2019-10-03] MEDS: MAGNESIUM OXIDE 250 MG PO SCH ×4 (08:47→20:51)
[2019-10-03] MEDS: [UNRECOGNIZED DRUG - SUPPLY] PO SCH (08:47)
[2019-10-03] MEDS: predniSONE 1 MG TAB PO SCH (08:50)
[2019-10-03] MEDS ORDERED: Mag-Al Plus 1200 MG/1200 MG/120 MG/30 ML UDCUP PO PRN (12:38)
[2019-10-03] MEDS: Multivit, Therapeutic 1 TAB PO SCH (13:37)
[2019-10-03] MEDS: Carvedilol 6.25 MG TAB PO SCH (17:27)
[2019-10-03] MEDS: Atorvastatin Calcium 10 MG TAB PO SCH (20:48)
[2019-10-03] MEDS: CETIRIZINE 10 MG TABLET PO SCH (20:51)
[2019-10-03] MEDS: CHOLECALCIFEROL PO SCH (20:51)
[2019-10-03] MEDS: CALCIUM CARBONATE 600 MG PO SCH (20:51)
[2019-10-04] MEDS: NEXIUM 40 MG PO SCH (05:39)
[2019-10-04] MEDS: Levothyroxine Sodium 75 MCG TAB PO SCH (05:39)
[2019-10-04 05:49] LABS: #Basophils 0.2 thou/uL (0.0-0.2); #Eosinphils 0.7 thou/uL (0.0-0.7); #Lymphocytes 1.7 thou/uL (1.20-3.40); #Monocytes 1.4 thou/uL (0.11-0.59); %Basophils 1.3 % (0.0-1.0); %Eosinophils 5.6 % (0.0-10.0); %Lymphocytes 14.3 % (21.0-51.0); %Monocytes 11.8 % (0.0-10.0); Hemoglobin 11.2 g/dL (12.0-16.0); Mean Corpuscular HGB CONC 31.3 g/dL (32.0-36.0); Mean Corpuscular Hemoglobin 30.6 pg (27.0-31.0); Mean Corpuscular Volume 97.8 fL (78.0-98.0); Mean Platelet Volume 6.9 fL (7.4-10.4); Platelet Count 264 thou/uL (130-400); RBC Distribution Width 16.4 % (11.5-14.5); Red Blood Cell (RBC) Count 3.65 mill/uL (4.20-5.40); White Blood Cell (WBC) Count 11.9 thou/uL (4.8-10.8)
[2019-10-04 06:03] LABS: ALT (SGPT) 19 U/L (8-55); AST (SGOT) 18 U/L (5-34); Albumin 3.4 g/dL (3.4-4.8); Alkaline Phosphatase 62 U/L (40-110); Anion Gap 15 mmol/L (10-20); BUN (Urea Nitrogen) 16 mg/dL (9.8-20.1); Bilirubin, Total 0.4 mg/dL (0.2-1.2); Calc. Creatinine Clearance 50 mL/min (70-130); Calcium 9.5 mg/dL (7.8-10.44); Carbon Dioxide 26 mmol/L (23-31); Chloride 102 mmol/L (98-107); Estimated GFR-MDRD 76; Globulin 3.3 g/dL (2.4-3.5); Glucose 114 mg/dL (83-110); Potassium 4.1 mmol/L (3.5-5.1); Protein, Total 6.7 g/dL (6.0-8.3); Sodium 139 mmol/L (136-145)
[2019-10-04] MEDS: HYDROcodone/Acetaminophen 7.5/325 mg Tablet PO SCH ×2 (07:59→21:05)
[2019-10-04] MEDS: Lysine 500 MG TAB PO SCH (08:00)
[2019-10-04] MEDS: Gabapentin 300 MG CAP PO SCH ×3 (08:00→21:05)
[2019-10-04] MEDS: Aspirin 81 mg Enteric Coated Tablet PO SCH (08:00)
[2019-10-04] MEDS: metFORMIN 500 MG TAB PO SCH ×2 (08:00→16:41)
[2019-10-04] MEDS: Ferrous Sulfate 325 MG TAB PO SCH ×2 (08:00→21:05)
[2019-10-04] MEDS: Furosemide 40 MG TAB PO SCH ×2 (08:00→14:27)
[2019-10-04] MEDS: predniSONE 1 MG TAB PO SCH (08:00)
[2019-10-04] MEDS: Carvedilol 6.25 MG TAB PO SCH ×2 (08:00→16:41)
[2019-10-04] MEDS: Potassium Chloride 20 MEQ TAB PO SCH ×3 (08:01→16:41)
[2019-10-04] MEDS: Stress 600 With Zinc 1 TAB PO SCH (08:01)
[2019-10-04] MEDS: BRILINTA 90 MG PO SCH ×2 (08:02→21:06)
[2019-10-04] MEDS: MAGNESIUM OXIDE 250 MG PO SCH ×4 (08:04→21:08)
[2019-10-04] MEDS: Multivit, Therapeutic 1 TAB PO SCH (14:27)
[2019-10-04] MEDS ORDERED: Carvedilol 6.25 MG TAB PO SCH (19:00)
[2019-10-04] MEDS: Atorvastatin Calcium 10 MG TAB PO SCH (21:05)
[2019-10-04] MEDS: CALCIUM CARBONATE 600 MG PO SCH (21:07)
[2019-10-04] MEDS: CHOLECALCIFEROL PO SCH (21:07)
[2019-10-04] MEDS: CETIRIZINE 10 MG TABLET PO SCH (21:08)
[2019-10-05] MEDS: Levothyroxine Sodium 75 MCG TAB PO SCH (05:39)
[2019-10-05] MEDS: NEXIUM 40 MG PO SCH (05:39)
[2019-10-05] MEDS ORDERED: Carvedilol 25 MG TAB PO SCH (08:00)
[2019-10-05] MEDS: Potassium Chloride 20 MEQ TAB PO SCH ×3 (08:07→17:01)
[2019-10-05] MEDS: Aspirin 81 mg Enteric Coated Tablet PO SCH (08:08)
[2019-10-05] MEDS: HYDROcodone/Acetaminophen 7.5/325 mg Tablet PO SCH ×2 (08:08→21:06)
[2019-10-05] MEDS: metFORMIN 500 MG TAB PO SCH ×2 (08:08→17:01)
[2019-10-05] MEDS: Ferrous Sulfate 325 MG TAB PO SCH ×2 (08:08→21:08)
[2019-10-05] MEDS: Furosemide 40 MG TAB PO SCH ×2 (08:08→14:30)
[2019-10-05] MEDS: Lysine 500 MG TAB PO SCH (08:09)
[2019-10-05] MEDS: Gabapentin 300 MG CAP PO SCH ×3 (08:09→21:08)
[2019-10-05] MEDS: Carvedilol 12.5 MG TAB PO SCH ×2 (08:09→17:01)
[2019-10-05] MEDS: Stress 600 With Zinc 1 TAB PO SCH (08:09)
[2019-10-05] MEDS: predniSONE 1 MG TAB PO SCH (08:09)
[2019-10-05] MEDS: BRILINTA 90 MG PO SCH ×2 (08:10→21:10)
[2019-10-05] MEDS: MAGNESIUM OXIDE 250 MG PO SCH ×4 (08:10→21:12)
[2019-10-05] MEDS: Multivit, Therapeutic 1 TAB PO SCH (14:30)
[2019-10-05] MEDS ORDERED: Carvedilol 12.5 MG TAB PO SCH (20:15)
[2019-10-05] MEDS: Atorvastatin Calcium 10 MG TAB PO SCH (21:08)
[2019-10-05] MEDS: CETIRIZINE 10 MG TABLET PO SCH (21:11)
[2019-10-05] MEDS: CALCIUM CARBONATE 600 MG PO SCH (21:11)
[2019-10-05] MEDS: CHOLECALCIFEROL PO SCH (21:11)
[2019-10-06] MEDS: Levothyroxine Sodium 75 MCG TAB PO SCH (05:41)
[2019-10-06] MEDS: NEXIUM 40 MG PO SCH (05:42)
[2019-10-06 06:13] LABS: Thyroid Stimulating Hormone 4.3196 uIU/mL (0.35-4.94)
[2019-10-06] MEDS: Carvedilol 12.5 MG TAB PO SCH ×2 (08:05→17:00)
[2019-10-06] MEDS: Potassium Chloride 20 MEQ TAB PO SCH ×3 (08:06→17:04)
[2019-10-06] MEDS: metFORMIN 500 MG TAB PO SCH ×2 (08:06→17:01)
[2019-10-06] MEDS: predniSONE 1 MG TAB PO SCH (08:06)
[2019-10-06] MEDS: Stress 600 With Zinc 1 TAB PO SCH (08:06)
[2019-10-06] MEDS: HYDROcodone/Acetaminophen 7.5/325 mg Tablet PO SCH ×2 (08:06→20:45)
[2019-10-06] MEDS: Furosemide 40 MG TAB PO SCH ×2 (08:07→14:41)
[2019-10-06] MEDS: Aspirin 81 mg Enteric Coated Tablet PO SCH (08:07)
[2019-10-06] MEDS: Ferrous Sulfate 325 MG TAB PO SCH ×2 (08:07→20:47)
[2019-10-06] MEDS: Lysine 500 MG TAB PO SCH (08:07)
[2019-10-06] MEDS: Gabapentin 300 MG CAP PO SCH ×3 (08:07→20:46)
[2019-10-06] MEDS: MAGNESIUM OXIDE 250 MG PO SCH ×4 (08:08→20:48)
[2019-10-06] MEDS: BRILINTA 90 MG PO SCH ×2 (08:09→20:50)
[2019-10-06] MEDS: Multivit, Therapeutic 1 TAB PO SCH (14:41)
[2019-10-06 15:41] LABS: Free T4 (Free Thyroxine) 1.01 ng/dL (0.70-1.48)
[2019-10-06] MEDS: Atorvastatin Calcium 10 MG TAB PO SCH (20:47)
[2019-10-06] MEDS: CALCIUM CARBONATE 600 MG PO SCH (20:49)
[2019-10-06] MEDS: CHOLECALCIFEROL PO SCH (20:49)
[2019-10-06] MEDS: CETIRIZINE 10 MG TABLET PO SCH (20:49)
[2019-10-07] MEDS: NEXIUM 40 MG PO SCH (06:03)
[2019-10-07] MEDS: Levothyroxine Sodium 75 MCG TAB PO SCH (06:03)
[2019-10-07] MEDS: HYDROcodone/Acetaminophen 7.5/325 mg Tablet PO SCH ×2 (08:35→20:33)
[2019-10-07] MEDS: Carvedilol 12.5 MG TAB PO SCH ×2 (08:36→17:39)
[2019-10-07] MEDS: Ferrous Sulfate 325 MG TAB PO SCH ×2 (08:37→20:33)
[2019-10-07] MEDS: metFORMIN 500 MG TAB PO SCH ×2 (08:37→17:40)
[2019-10-07] MEDS: Furosemide 40 MG TAB PO SCH ×2 (08:37→14:40)
[2019-10-07] MEDS: Aspirin 81 mg Enteric Coated Tablet PO SCH (08:37)
[2019-10-07] MEDS: Potassium Chloride 20 MEQ TAB PO SCH ×3 (08:37→17:40)
[2019-10-07] MEDS: predniSONE 1 MG TAB PO SCH (08:37)
[2019-10-07] MEDS: Lysine 500 MG TAB PO SCH (08:38)
[2019-10-07] MEDS: Stress 600 With Zinc 1 TAB PO SCH (08:38)
[2019-10-07] MEDS: Gabapentin 300 MG CAP PO SCH ×3 (08:38→20:34)
[2019-10-07] MEDS: BRILINTA 90 MG PO SCH ×2 (08:39→20:31)
[2019-10-07] MEDS: MAGNESIUM OXIDE 250 MG PO SCH ×4 (08:39→20:35)
[2019-10-07] MEDS ORDERED: Furosemide 20 MG TAB PO SCH ×3 (10:15→14:00)
[2019-10-07] MEDS: Multivit, Therapeutic 1 TAB PO SCH (14:41)
[2019-10-07] MEDS ORDERED: Carvedilol 6.25 MG TAB PO SCH (17:00)
[2019-10-07] MEDS: CETIRIZINE 10 MG TABLET PO SCH (20:30)
[2019-10-07] MEDS: Atorvastatin Calcium 10 MG TAB PO SCH (20:34)
[2019-10-07] MEDS: CALCIUM CARBONATE 600 MG PO SCH (20:34)
[2019-10-07] MEDS: CHOLECALCIFEROL PO SCH (20:34)
[2019-10-08] MEDS: NEXIUM 40 MG PO SCH (05:53)
[2019-10-08] MEDS: Levothyroxine Sodium 88 MCG TAB PO SCH (05:53)
[2019-10-08] MEDS: HYDROcodone/Acetaminophen 7.5/325 mg Tablet PO SCH ×4 (08:40→21:30)
[2019-10-08] MEDS: Carvedilol 12.5 MG TAB PO SCH ×2 (08:40→17:10)
[2019-10-08] MEDS: Lysine 500 MG TAB PO SCH (08:41)
[2019-10-08] MEDS: metFORMIN 500 MG TAB PO SCH ×2 (08:41→17:11)
[2019-10-08] MEDS: Stress 600 With Zinc 1 TAB PO SCH (08:41)
[2019-10-08] MEDS: predniSONE 1 MG TAB PO SCH (08:42)
[2019-10-08] MEDS: Potassium Chloride 20 MEQ TAB PO SCH ×3 (08:42→17:10)
[2019-10-08] MEDS: Furosemide 40 MG TAB PO SCH ×2 (08:42→14:50)
[2019-10-08] MEDS: Aspirin 81 mg Enteric Coated Tablet PO SCH (08:42)
[2019-10-08] MEDS: Gabapentin 300 MG CAP PO SCH ×3 (08:42→21:21)
[2019-10-08] MEDS: Ferrous Sulfate 325 MG TAB PO SCH ×2 (08:42→21:21)
[2019-10-08] MEDS: BRILINTA 90 MG PO SCH ×2 (08:43→21:22)
[2019-10-08] MEDS: MAGNESIUM OXIDE 250 MG PO SCH ×4 (08:44→21:23)
[2019-10-08] MEDS: Multivit, Therapeutic 1 TAB PO SCH (14:51)
[2019-10-08] MEDS: Atorvastatin Calcium 10 MG TAB PO SCH (21:20)
[2019-10-08] MEDS: CALCIUM CARBONATE 600 MG PO SCH (21:22)
[2019-10-08] MEDS: CHOLECALCIFEROL PO SCH (21:22)
[2019-10-08] MEDS: CETIRIZINE 10 MG TABLET PO SCH (21:24)
[2019-10-09] MEDS: Levothyroxine Sodium 88 MCG TAB PO SCH (05:39)
[2019-10-09] MEDS: NEXIUM 40 MG PO SCH (05:40)
[2019-10-09] MEDS: Carvedilol 12.5 MG TAB PO SCH ×2 (08:30→17:31)
[2019-10-09] MEDS: HYDROcodone/Acetaminophen 7.5/325 mg Tablet PO SCH ×2 (08:30→20:20)
[2019-10-09] MEDS: predniSONE 1 MG TAB PO SCH (08:31)
[2019-10-09] MEDS: Lysine 500 MG TAB PO SCH (08:31)
[2019-10-09] MEDS: Aspirin 81 mg Enteric Coated Tablet PO SCH (08:31)
[2019-10-09] MEDS: Stress 600 With Zinc 1 TAB PO SCH (08:31)
[2019-10-09] MEDS: Gabapentin 300 MG CAP PO SCH ×3 (08:31→19:27)
[2019-10-09] MEDS: Ferrous Sulfate 325 MG TAB PO SCH ×2 (08:31→20:22)
[2019-10-09] MEDS: Potassium Chloride 20 MEQ TAB PO SCH ×3 (08:32→17:31)
[2019-10-09] MEDS: BRILINTA 90 MG PO SCH ×2 (08:32→20:25)
[2019-10-09] MEDS: metFORMIN 500 MG TAB PO SCH ×2 (08:32→17:31)
[2019-10-09] MEDS: Furosemide 40 MG TAB PO SCH ×2 (08:32→14:40)
[2019-10-09] MEDS: MAGNESIUM OXIDE 250 MG PO SCH ×4 (08:33→20:26)
[2019-10-09] MEDS: Multivit, Therapeutic 1 TAB PO SCH (14:40)
[2019-10-09] MEDS: Atorvastatin Calcium 10 MG TAB PO SCH (20:22)
[2019-10-09] MEDS: CALCIUM CARBONATE 600 MG PO SCH (20:24)
[2019-10-09] MEDS: CHOLECALCIFEROL PO SCH (20:24)
[2019-10-09] MEDS: CETIRIZINE 10 MG TABLET PO SCH (20:25)
[2019-10-10] MEDS: Levothyroxine Sodium 88 MCG TAB PO SCH (05:45)
[2019-10-10] MEDS: NEXIUM 40 MG PO SCH (05:46)
[2019-10-10] MEDS: Acetaminophen 325 MG TAB PO PRN (07:21)
[2019-10-10] MEDS: Lysine 500 MG TAB PO SCH (08:47)
[2019-10-10] MEDS: HYDROcodone/Acetaminophen 7.5/325 mg Tablet PO SCH ×2 (08:47→20:01)
[2019-10-10] MEDS: Ferrous Sulfate 325 MG TAB PO SCH ×2 (08:48→20:01)
[2019-10-10] MEDS: metFORMIN 500 MG TAB PO SCH ×2 (08:48→17:21)
[2019-10-10] MEDS: predniSONE 1 MG TAB PO SCH (08:49)
[2019-10-10] MEDS: Carvedilol 12.5 MG TAB PO SCH ×2 (08:49→17:22)
[2019-10-10] MEDS: Furosemide 40 MG TAB PO SCH ×2 (08:49→14:09)
[2019-10-10] MEDS: Potassium Chloride 20 MEQ TAB PO SCH ×3 (08:49→17:21)
[2019-10-10] MEDS: Stress 600 With Zinc 1 TAB PO SCH (08:49)
[2019-10-10] MEDS: Aspirin 81 mg Enteric Coated Tablet PO SCH (08:50)
[2019-10-10] MEDS: Gabapentin 300 MG CAP PO SCH ×3 (08:50→20:01)
[2019-10-10] MEDS: BRILINTA 90 MG PO SCH ×2 (08:51→20:02)
[2019-10-10] MEDS: MAGNESIUM OXIDE 250 MG PO SCH ×4 (08:55→20:03)
[2019-10-10] MEDS: Multivit, Therapeutic 1 TAB PO SCH (14:09)
[2019-10-10] MEDS: Atorvastatin Calcium 10 MG TAB PO SCH (20:01)
[2019-10-10] MEDS: CHOLECALCIFEROL PO SCH (20:03)
[2019-10-10] MEDS: CETIRIZINE 10 MG TABLET PO SCH (20:03)
[2019-10-10] MEDS: CALCIUM CARBONATE 600 MG PO SCH (20:03)
[2019-10-11] MEDS: NEXIUM 40 MG PO SCH (05:18)
[2019-10-11] MEDS: Levothyroxine Sodium 88 MCG TAB PO SCH (05:18)
[2019-10-11] MEDS: Acetaminophen 325 MG TAB PO PRN (05:21)
[2019-10-11] MEDS: HYDROcodone/Acetaminophen 7.5/325 mg Tablet PO SCH ×2 (08:06→20:39)
[2019-10-11] MEDS: Potassium Chloride 20 MEQ TAB PO SCH ×3 (08:06→16:53)
[2019-10-11] MEDS: Gabapentin 300 MG CAP PO SCH ×3 (08:07→20:40)
[2019-10-11] MEDS: Aspirin 81 mg Enteric Coated Tablet PO SCH (08:07)
[2019-10-11] MEDS: Carvedilol 12.5 MG TAB PO SCH ×2 (08:09→16:53)
[2019-10-11] MEDS: Stress 600 With Zinc 1 TAB PO SCH (08:10)
[2019-10-11] MEDS: Ferrous Sulfate 325 MG TAB PO SCH ×2 (08:10→20:38)
[2019-10-11] MEDS: Furosemide 40 MG TAB PO SCH ×2 (08:10→14:53)
[2019-10-11] MEDS: Lysine 500 MG TAB PO SCH (08:10)
[2019-10-11] MEDS: predniSONE 1 MG TAB PO SCH (08:10)
[2019-10-11] MEDS: metFORMIN 500 MG TAB PO SCH ×2 (08:10→16:53)
[2019-10-11] MEDS: MAGNESIUM OXIDE 250 MG PO SCH ×4 (08:11→20:41)
[2019-10-11] MEDS: BRILINTA 90 MG PO SCH ×2 (08:11→20:40)
[2019-10-11] MEDS: Multivit, Therapeutic 1 TAB PO SCH (14:53)
[2019-10-11] MEDS: Atorvastatin Calcium 10 MG TAB PO SCH (20:38)
[2019-10-11] MEDS: CALCIUM CARBONATE 600 MG PO SCH (20:44)
[2019-10-11] MEDS: CHOLECALCIFEROL PO SCH (20:44)
[2019-10-11] MEDS: CETIRIZINE 10 MG TABLET PO SCH (20:45)
[2019-10-12] MEDS: NEXIUM 40 MG PO SCH (06:00)
[2019-10-12] MEDS ORDERED: Levothyroxine Sodium 88 MCG TAB ONE (06:02)
[2019-10-12] MEDS: HYDROcodone/Acetaminophen 7.5/325 mg Tablet PO SCH ×2 (08:30→20:22)
[2019-10-12] MEDS: Carvedilol 12.5 MG TAB PO SCH ×2 (09:00→16:59)
[2019-10-12] MEDS: Levothyroxine Sodium 88 MCG TAB PO SCH (13:21)
[2019-10-12] MEDS: Gabapentin 300 MG CAP PO SCH ×3 (14:29→20:22)
[2019-10-12] MEDS: Multivit, Therapeutic 1 TAB PO SCH (14:29)
[2019-10-12] MEDS: Furosemide 40 MG TAB PO SCH ×2 (14:30→14:39)
[2019-10-12] MEDS: Potassium Chloride 20 MEQ TAB PO SCH ×2 (14:39→17:00)
[2019-10-12] MEDS: Lysine 500 MG TAB PO SCH (14:39)
[2019-10-12] MEDS: Aspirin 81 mg Enteric Coated Tablet PO SCH (14:39)
[2019-10-12] MEDS: metFORMIN 500 MG TAB PO SCH ×2 (14:39→16:59)
[2019-10-12] MEDS: Ferrous Sulfate 325 MG TAB PO SCH ×2 (14:39→20:22)
[2019-10-12] MEDS: MAGNESIUM OXIDE 250 MG PO SCH ×3 (14:40→20:26)
[2019-10-12] MEDS: predniSONE 1 MG TAB PO SCH (14:40)
[2019-10-12] MEDS: BRILINTA 90 MG PO SCH ×2 (14:40→20:25)
[2019-10-12] MEDS: Stress 600 With Zinc 1 TAB PO SCH (14:40)
[2019-10-12] MEDS: CALCIUM CARBONATE 600 MG PO SCH (20:21)
[2019-10-12] MEDS: CHOLECALCIFEROL PO SCH (20:21)
[2019-10-12] MEDS: Atorvastatin Calcium 10 MG TAB PO SCH (20:24)
[2019-10-12] MEDS: CETIRIZINE 10 MG TABLET PO SCH (20:26)
[2019-10-13] MEDS: NEXIUM 40 MG PO SCH (06:27)
[2019-10-13] MEDS: Levothyroxine Sodium 75 MCG TAB PO SCH (06:27)
[2019-10-13] MEDS: Carvedilol 12.5 MG TAB PO SCH ×2 (09:04→17:10)
[2019-10-13] MEDS: HYDROcodone/Acetaminophen 7.5/325 mg Tablet PO SCH ×2 (09:04→21:08)
[2019-10-13] MEDS: metFORMIN 500 MG TAB PO SCH ×2 (09:05→17:11)
[2019-10-13] MEDS: Gabapentin 300 MG CAP PO SCH ×3 (09:05→21:08)
[2019-10-13] MEDS: Potassium Chloride 20 MEQ TAB PO SCH ×3 (09:05→17:11)
[2019-10-13] MEDS: Stress 600 With Zinc 1 TAB PO SCH (09:05)
[2019-10-13] MEDS: Furosemide 40 MG TAB PO SCH ×2 (09:05→14:38)
[2019-10-13] MEDS: Aspirin 81 mg Enteric Coated Tablet PO SCH (09:05)
[2019-10-13] MEDS: Lysine 500 MG TAB PO SCH (09:05)
[2019-10-13] MEDS: BRILINTA 90 MG PO SCH ×2 (09:06→21:09)
[2019-10-13] MEDS: Ferrous Sulfate 325 MG TAB PO SCH ×2 (09:06→21:07)
[2019-10-13] MEDS: predniSONE 1 MG TAB PO SCH (09:06)
[2019-10-13] MEDS: MAGNESIUM OXIDE 250 MG PO SCH ×4 (09:07→21:11)
[2019-10-13] MEDS: Multivit, Therapeutic 1 TAB PO SCH (14:38)
[2019-10-13] MEDS: Atorvastatin Calcium 10 MG TAB PO SCH (21:07)
[2019-10-13] MEDS: CALCIUM CARBONATE 600 MG PO SCH (21:10)
[2019-10-13] MEDS: CHOLECALCIFEROL PO SCH (21:10)
[2019-10-13] MEDS: CETIRIZINE 10 MG TABLET PO SCH (21:10)
[2019-10-14] MEDS: Levothyroxine Sodium 75 MCG TAB PO SCH (05:58)
[2019-10-14] MEDS: NEXIUM 40 MG PO SCH (05:59)
[2019-10-14] MEDS: HYDROcodone/Acetaminophen 7.5/325 mg Tablet PO SCH ×2 (07:45→21:07)
[2019-10-14] MEDS: Potassium Chloride 20 MEQ TAB PO SCH ×3 (07:48→17:52)
[2019-10-14] MEDS: Carvedilol 12.5 MG TAB PO SCH ×2 (07:48→17:52)
[2019-10-14] MEDS: metFORMIN 500 MG TAB PO SCH ×2 (07:48→17:52)
[2019-10-14] MEDS: BRILINTA 90 MG PO SCH ×2 (08:55→21:08)
[2019-10-14] MEDS: Stress 600 With Zinc 1 TAB PO SCH (08:56)
[2019-10-14] MEDS: MAGNESIUM OXIDE 250 MG PO SCH ×4 (08:56→21:09)
[2019-10-14] MEDS: predniSONE 1 MG TAB PO SCH (08:56)
[2019-10-14] MEDS: Gabapentin 300 MG CAP PO SCH ×3 (08:56→21:07)
[2019-10-14] MEDS: Furosemide 40 MG TAB PO SCH ×2 (08:56→14:29)
[2019-10-14] MEDS: Lysine 500 MG TAB PO SCH (08:56)
[2019-10-14] MEDS: Aspirin 81 mg Enteric Coated Tablet PO SCH (08:56)
[2019-10-14] MEDS: Ferrous Sulfate 325 MG TAB PO SCH ×2 (08:57→21:07)
[2019-10-14] MEDS: Multivit, Therapeutic 1 TAB PO SCH (14:29)
[2019-10-14] MEDS: Atorvastatin Calcium 10 MG TAB PO SCH (21:07)
[2019-10-14] MEDS: CALCIUM CARBONATE 600 MG PO SCH (21:09)
[2019-10-14] MEDS: CHOLECALCIFEROL PO SCH (21:09)
[2019-10-14] MEDS: CETIRIZINE 10 MG TABLET PO SCH (21:09)
[2019-10-15] MEDS: NEXIUM 40 MG PO SCH (05:31)
[2019-10-15] MEDS: Levothyroxine Sodium 75 MCG TAB PO SCH (05:31)
[2019-10-15] MEDS: HYDROcodone/Acetaminophen 7.5/325 mg Tablet PO SCH ×2 (08:48→21:08)
[2019-10-15] MEDS: Furosemide 40 MG TAB PO SCH ×2 (08:49→13:12)
[2019-10-15] MEDS: Ferrous Sulfate 325 MG TAB PO SCH ×2 (08:49→21:08)
[2019-10-15] MEDS: metFORMIN 500 MG TAB PO SCH ×2 (08:49→16:52)
[2019-10-15] MEDS: Stress 600 With Zinc 1 TAB PO SCH (08:50)
[2019-10-15] MEDS: predniSONE 1 MG TAB PO SCH (08:50)
[2019-10-15] MEDS: Aspirin 81 mg Enteric Coated Tablet PO SCH (08:50)
[2019-10-15] MEDS: Lysine 500 MG TAB PO SCH (08:50)
[2019-10-15] MEDS: Carvedilol 12.5 MG TAB PO SCH ×2 (08:50→16:52)
[2019-10-15] MEDS: BRILINTA 90 MG PO SCH ×2 (08:51→21:09)
[2019-10-15] MEDS: Gabapentin 300 MG CAP PO SCH ×3 (08:51→21:08)
[2019-10-15] MEDS: MAGNESIUM OXIDE 250 MG PO SCH ×4 (08:53→21:10)
[2019-10-15] MEDS: Potassium Chloride 20 MEQ TAB PO SCH ×3 (08:58→16:52)
[2019-10-15] MEDS: Multivit, Therapeutic 1 TAB PO SCH (13:12)
[2019-10-15] MEDS: Atorvastatin Calcium 10 MG TAB PO SCH (21:08)
[2019-10-15] MEDS: CHOLECALCIFEROL PO SCH (21:09)
[2019-10-15] MEDS: CALCIUM CARBONATE 600 MG PO SCH (21:09)
[2019-10-15] MEDS: CETIRIZINE 10 MG TABLET PO SCH (21:10)
[2019-10-16] MEDS: NEXIUM 40 MG PO SCH (06:13)
[2019-10-16] MEDS: Levothyroxine Sodium 75 MCG TAB PO SCH (06:13)
[2019-10-16] MEDS: HYDROcodone/Acetaminophen 7.5/325 mg Tablet PO SCH ×2 (08:04→21:00)
[2019-10-16] MEDS: Potassium Chloride 20 MEQ TAB PO SCH ×3 (08:04→17:00)
[2019-10-16] MEDS: metFORMIN 500 MG TAB PO SCH ×2 (08:04→17:00)
[2019-10-16] MEDS: Furosemide 40 MG TAB PO SCH ×2 (08:05→15:00)
[2019-10-16] MEDS: Stress 600 With Zinc 1 TAB PO SCH (08:05)
[2019-10-16] MEDS: Lysine 500 MG TAB PO SCH (08:05)
[2019-10-16] MEDS: Gabapentin 300 MG CAP PO SCH ×3 (08:05→21:00)
[2019-10-16] MEDS: Aspirin 81 mg Enteric Coated Tablet PO SCH (08:06)
[2019-10-16] MEDS: predniSONE 1 MG TAB PO SCH (08:06)
[2019-10-16] MEDS: Ferrous Sulfate 325 MG TAB PO SCH ×2 (08:06→21:00)
[2019-10-16] MEDS: Carvedilol 12.5 MG TAB PO SCH ×2 (08:06→17:00)
[2019-10-16] MEDS: MAGNESIUM OXIDE 250 MG PO SCH ×4 (08:07→21:03)
[2019-10-16] MEDS: BRILINTA 90 MG PO SCH ×2 (08:07→21:01)
[2019-10-16] MEDS: Multivit, Therapeutic 1 TAB PO SCH (15:03)
[2019-10-16] MEDS: Atorvastatin Calcium 10 MG TAB PO SCH (21:00)
[2019-10-16] MEDS: CETIRIZINE 10 MG TABLET PO SCH (21:02)
[2019-10-16] MEDS: CALCIUM CARBONATE 600 MG PO SCH (21:02)
[2019-10-16] MEDS: CHOLECALCIFEROL PO SCH (21:02)
[2019-10-17] MEDS: NEXIUM 40 MG PO SCH (05:27)
[2019-10-17] MEDS: Levothyroxine Sodium 75 MCG TAB PO SCH (05:27)
[2019-10-17] MEDS: HYDROcodone/Acetaminophen 7.5/325 mg Tablet PO SCH ×2 (08:14→20:57)
[2019-10-17] MEDS: metFORMIN 500 MG TAB PO SCH ×2 (08:15→17:14)
[2019-10-17] MEDS: Carvedilol 12.5 MG TAB PO SCH ×2 (08:15→17:14)
[2019-10-17] MEDS: predniSONE 1 MG TAB PO SCH (08:16)
[2019-10-17] MEDS: Aspirin 81 mg Enteric Coated Tablet PO SCH (08:16)
[2019-10-17] MEDS: Furosemide 40 MG TAB PO SCH ×2 (08:16→14:55)
[2019-10-17] MEDS: Potassium Chloride 20 MEQ TAB PO SCH ×3 (08:16→17:14)
[2019-10-17] MEDS: Lysine 500 MG TAB PO SCH (08:16)
[2019-10-17] MEDS: Stress 600 With Zinc 1 TAB PO SCH (08:16)
[2019-10-17] MEDS: Gabapentin 300 MG CAP PO SCH ×3 (08:16→20:57)
[2019-10-17] MEDS: BRILINTA 90 MG PO SCH (08:16)
[2019-10-17] MEDS: MAGNESIUM OXIDE 250 MG PO SCH ×4 (08:19→20:59)
[2019-10-17] MEDS: Ferrous Sulfate 325 MG TAB PO SCH ×2 (08:20→20:57)
[2019-10-17 14:30] VITALS: BMI 23.1
[2019-10-17] MEDS: Multivit, Therapeutic 1 TAB PO SCH (14:56)
[2019-10-17] MEDS ORDERED: Clopidogrel Bisulfate 75 MG TAB PO SCH (17:15)
[2019-10-17] MEDS: Atorvastatin Calcium 10 MG TAB PO SCH (20:57)
[2019-10-17] MEDS: CALCIUM CARBONATE 600 MG PO SCH (20:58)
[2019-10-17] MEDS: CHOLECALCIFEROL PO SCH (20:58)
[2019-10-17] MEDS: CETIRIZINE 10 MG TABLET PO SCH (20:59)
[2019-10-18] MEDS: NEXIUM 40 MG PO SCH (05:21)
[2019-10-18] MEDS: Levothyroxine Sodium 75 MCG TAB PO SCH (05:21)
[2019-10-18] MEDS: HYDROcodone/Acetaminophen 7.5/325 mg Tablet PO SCH ×2 (07:31→21:37)
[2019-10-18] MEDS: metFORMIN 500 MG TAB PO SCH ×2 (07:33→17:03)
[2019-10-18] MEDS: Carvedilol 12.5 MG TAB PO SCH ×2 (07:33→17:03)
[2019-10-18] MEDS: Potassium Chloride 20 MEQ TAB PO SCH ×3 (07:34→17:04)
--- NOTE | 2019-10-18 07:41 | RAD ---
XR Chest Pa Lat STANDARD HISTORY: Atherosclerotic heart disease of [place] coronary arteries. COMPARISON: 09/29/2019 FINDINGS: Left-sided AICD remains in place. The heart size at upper limits of normal. There is pulmon titus vascular congestion with accompanying small pleural effusions. No pneumothoraces are seen. Pleural-based opacity posteriorly on the lateral view is again noted.
[2019-10-18] MEDS: Stress 600 With Zinc 1 TAB PO SCH (08:46)
[2019-10-18] MEDS: Lysine 500 MG TAB PO SCH (08:46)
[2019-10-18] MEDS: Ferrous Sulfate 325 MG TAB PO SCH ×2 (08:46→21:37)
[2019-10-18] MEDS: Clopidogrel Bisulfate 75 MG TAB PO SCH (08:46)
[2019-10-18] MEDS: Aspirin 81 mg Enteric Coated Tablet PO SCH (08:46)
[2019-10-18] MEDS: Gabapentin 300 MG CAP PO SCH ×3 (08:47→21:37)
[2019-10-18] MEDS: MAGNESIUM OXIDE 250 MG PO SCH ×4 (08:47→21:39)
[2019-10-18] MEDS: Furosemide 40 MG TAB PO SCH ×2 (08:47→14:39)
[2019-10-18] MEDS: predniSONE 1 MG TAB PO SCH (08:47)
[2019-10-18] MEDS: Multivit, Therapeutic 1 TAB PO SCH (14:39)
[2019-10-18] MEDS: Atorvastatin Calcium 10 MG TAB PO SCH (21:37)
[2019-10-18] MEDS: CETIRIZINE 10 MG TABLET PO SCH (21:38)
[2019-10-18] MEDS: CALCIUM CARBONATE 600 MG PO SCH (21:39)
[2019-10-18] MEDS: CHOLECALCIFEROL PO SCH (21:39)
[2019-10-19] MEDS: Levothyroxine Sodium 75 MCG TAB PO SCH (06:21)
[2019-10-19] MEDS: NEXIUM 40 MG PO SCH (06:21)
[2019-10-19] MEDS: Stress 600 With Zinc 1 TAB PO SCH (08:01)
[2019-10-19] MEDS: HYDROcodone/Acetaminophen 7.5/325 mg Tablet PO SCH ×2 (08:01→20:06)
[2019-10-19] MEDS: Carvedilol 12.5 MG TAB PO SCH ×2 (08:01→17:03)
[2019-10-19] MEDS: Lysine 500 MG TAB PO SCH (08:01)
[2019-10-19] MEDS: Gabapentin 300 MG CAP PO SCH ×3 (08:02→20:09)
[2019-10-19] MEDS: Furosemide 40 MG TAB PO SCH ×2 (08:03→14:35)
[2019-10-19] MEDS: metFORMIN 500 MG TAB PO SCH ×2 (08:03→17:03)
[2019-10-19] MEDS: predniSONE 1 MG TAB PO SCH (08:03)
[2019-10-19] MEDS: Clopidogrel Bisulfate 75 MG TAB PO SCH (08:03)
[2019-10-19] MEDS: Aspirin 81 mg Enteric Coated Tablet PO SCH (08:03)
[2019-10-19] MEDS: Ferrous Sulfate 325 MG TAB PO SCH ×2 (08:03→20:09)
[2019-10-19] MEDS: Potassium Chloride 20 MEQ TAB PO SCH ×3 (08:04→17:03)
[2019-10-19] MEDS: MAGNESIUM OXIDE 250 MG PO SCH ×4 (08:11→20:10)
[2019-10-19] MEDS: Multivit, Therapeutic 1 TAB PO SCH (14:35)
[2019-10-19] MEDS: Atorvastatin Calcium 10 MG TAB PO SCH (20:09)
[2019-10-19] MEDS: CALCIUM CARBONATE 600 MG PO SCH (20:11)
[2019-10-19] MEDS: CHOLECALCIFEROL PO SCH (20:11)
[2019-10-19] MEDS: CETIRIZINE 10 MG TABLET PO SCH (20:12)
[2019-10-20] MEDS: Levothyroxine Sodium 75 MCG TAB PO SCH (05:20)
[2019-10-20] MEDS: NEXIUM 40 MG PO SCH (05:21)
[2019-10-20] MEDS: predniSONE 1 MG TAB PO SCH (08:18)
[2019-10-20] MEDS: metFORMIN 500 MG TAB PO SCH ×2 (08:19→17:14)
[2019-10-20] MEDS: Potassium Chloride 20 MEQ TAB PO SCH ×3 (08:19→17:15)
[2019-10-20] MEDS: HYDROcodone/Acetaminophen 7.5/325 mg Tablet PO SCH ×2 (08:20→20:33)
[2019-10-20] MEDS: Stress 600 With Zinc 1 TAB PO SCH (08:20)
[2019-10-20] MEDS: Carvedilol 12.5 MG TAB PO SCH ×2 (08:20→17:14)
[2019-10-20] MEDS: Gabapentin 300 MG CAP PO SCH ×3 (08:20→20:35)
[2019-10-20] MEDS: Lysine 500 MG TAB PO SCH (08:20)
[2019-10-20] MEDS: Ferrous Sulfate 325 MG TAB PO SCH ×2 (08:21→20:35)
[2019-10-20] MEDS: Clopidogrel Bisulfate 75 MG TAB PO SCH (08:21)
[2019-10-20] MEDS: Aspirin 81 mg Enteric Coated Tablet PO SCH (08:21)
[2019-10-20] MEDS: Furosemide 40 MG TAB PO SCH ×2 (08:21→14:56)
[2019-10-20] MEDS: MAGNESIUM OXIDE 250 MG PO SCH ×4 (08:22→20:36)
[2019-10-20] MEDS: Multivit, Therapeutic 1 TAB PO SCH (14:56)
[2019-10-20] MEDS: Atorvastatin Calcium 10 MG TAB PO SCH (20:33)
[2019-10-20] MEDS: CHOLECALCIFEROL PO SCH (20:36)
[2019-10-20] MEDS: CALCIUM CARBONATE 600 MG PO SCH (20:36)
[2019-10-20] MEDS: CETIRIZINE 10 MG TABLET PO SCH (20:37)
[2019-10-21] MEDS: Levothyroxine Sodium 75 MCG TAB PO SCH (05:01)
[2019-10-21] MEDS: NEXIUM 40 MG PO SCH (05:01)
[2019-10-21] MEDS: HYDROcodone/Acetaminophen 7.5/325 mg Tablet PO SCH (08:17)
[2019-10-21] MEDS: Gabapentin 300 MG CAP PO SCH ×2 (08:18→14:40)
[2019-10-21] MEDS: Aspirin 81 mg Enteric Coated Tablet PO SCH (08:18)
[2019-10-21] MEDS: predniSONE 1 MG TAB PO SCH (08:18)
[2019-10-21] MEDS: metFORMIN 500 MG TAB PO SCH ×2 (08:18→17:38)
[2019-10-21] MEDS: Potassium Chloride 20 MEQ TAB PO SCH ×3 (08:18→17:38)
[2019-10-21] MEDS: Carvedilol 12.5 MG TAB PO SCH ×2 (08:18→17:38)
[2019-10-21] MEDS: Ferrous Sulfate 325 MG TAB PO SCH (08:19)
[2019-10-21] MEDS: Furosemide 40 MG TAB PO SCH ×2 (08:19→14:40)
[2019-10-21] MEDS: Clopidogrel Bisulfate 75 MG TAB PO SCH (08:19)
[2019-10-21] MEDS: Lysine 500 MG TAB PO SCH (08:19)
[2019-10-21] MEDS: Stress 600 With Zinc 1 TAB PO SCH (08:19)
[2019-10-21] MEDS: MAGNESIUM OXIDE 250 MG PO SCH ×3 (08:20→17:37)
[2019-10-21 08:45] VITALS: BP 101/53; TEMP 97.5
[2019-10-21] MEDS: Multivit, Therapeutic 1 TAB PO SCH (14:40)
--- NOTE | 2019-10-24 07:19 | DIS ---
DATE OF ADMISSION: 09/28/2019 DATE OF DISCHARGE: 10/21/2019 PRIMARY CARE PHYSICIAN: Dr. Puja Da Silva. DISCHARGE DIAGNOSES: 1. Physical decondition, improved. 2. Hypotension, resolved. 3. Sinus tachycardia, much improved. 4. Diabetes type 2, stable. 5. Coronary artery disease, status post multivessel stents placement. 6. Acute on chronic anemia, stable. 7. Congestive heart failure, stable. DISCHARGE MEDICATIONS: 1. Tylenol 650 daily. 2. [place] 7.5/325 b.i.d. 3. Aspirin 81 mg daily. 4. Coreg 25 mg b.i.d. 5. Lipitor 20 mg daily. 6. Plavix 75 daily. 7. Ferrous sulfate 325 b.i.d. 8. Lasix 40 mg b.i.d. 9. Gabapentin 300 mg t.i.d. 10. Levothyroxine 75 mcg daily. 11. Lysine 500 daily. 12. Metformin 500 mg b.i.d. 13. Multivitamin with zinc. 14. Nitroglycerin 0.4 sublingual p.r.n. chest pain. 15. Magnesium oxide 250 q.i.d. 16. Cetirizine 10 mg daily. 17. Nexium 40 mg daily. 18. Potassium chloride 20 t.i.d. 19. Prednisone 2 mg daily. 20. Diclofenac gel q.i.d. p.r.n. DISCHARGE INSTRUCTIONS: [facility] to resume physical therapy. Patient is to follow up with pants busheler in 1 week and repeat echocardiogram. The patient to follow up with primary care physician within 3 to 4 weeks. Patient to continue a low-sodium, heart-healthy diet. BRIEF HOSPITAL COURSE: Ms. Medina Pollock is an 84-year-old female, who was admitted to [facility] on September 28. Patient underwent a multivessel stents placement on August 25, 2019, at [facility] in [place]. Postoperatively, she had some complications with fluid overload, CHF, and respiratory failure. Patient was intubated and had to be on oxygen and antibiotics. Patient progressively improved but was noted to be physically severely deconditioned and the decision was then made to send patient to a skilled rehabilitation center. She was initially sent to [facility] on September 23, 2019, but unfortunately they did not have a physical therapy team and patient was subsequently transferred here to [place] to continue skilled rehabilitation and due to very labile blood pressure and O2 saturation. During hospitalization , here we were able to slowly wean patient off the oxygen. We repeated a chest x- ray on September 29 and October 18 and this showed improvement in the lung parenchyma and stable pleural-based opacities. Patient declined further CT scan of the chest as states she already knew about the densities and those were chronic. Patient during hospitalization here she had complications during rehab due to episodes of sinus tachycardia. Medications were adjusted and this progressively improved. Patient was able to follow up with her pants busheler on two different occasions and we were able to consult him via the phone for proper medication adjustment. Patient continued to participate in physical therapy and on day of discharge, was able to use a rolling walker to ambulate above 400 feet. Patient was safe and steady with the gait and support by Physical Therapy and she was subsequently discharged home in a stable condition with her daughter who states she will stay with her for a couple of weeks. Patient to resume home health and physical therapy, medication management with [facility]. Discharge vital signs; temperature 97.5, pulse 81, respirations 22, O2 saturation 95% on room air, and blood pressure 101/53. Job ID: [id number] MTDD
--- NOTE | 2019-10-31 03:04 | PQF ---
S[employer] 1 [employer] Teacher Crystal Reports Winform ViewerLEWIS SARAH CASE EYAD MARQUES [id number] CLINICAL DOCUMENTATION CLARIFICATION FORM: POST DISCHARGE Addendum to original discharge summary date: ____ Late entry note date: __ DATE: 10/31/2019 ATTN:EYAD MARQUES Please exercise your independent, professional judgment in responding to the clarification form. Clinical indicators are provided on the bottom of this form for your review Please check appropriate box(s): HEART FAILURE: A. TYPE: [ x ] Systolic / HFrEF [ ] Diastolic / HFpEF [ ] Combined Systolic / Diastolic B. ACUITY [ ] Acute [ ] Acute on Chronic [ x ] Chronic [ ] Other diagnosis [ ] Unable to determine In addition, please specify: Present on Admission (POA): [ x ] Yes [ ] No [ ] Unable to determine For continuity of documentation, please document condition throughout progress notes and discharge summary. Thank You. CLINICAL INDICATORS - SIGNS / SYMPTOMS / LABS Congestive heart failure - Documented in DS on 10/21 by Puja Da Silva After stent placement she complication with fluid overload, CHF - Documented in DS on 10/21 by Puja Da Silva Elevated BNP 310.1 - Documented in Laboratory CHF with Ejection fraction <40% - Documented in Written PNs pg 4 RISKS: History of CAD Hypertension DM TREATMENTS: Furosemide 325 mg Echocardiogram Chest X ray [employer] Teacher Crystal Reports Winform Viewer (This form is maintained as a part of the permanent medical record) 2014 [employer]. All Rights Reserved [email or web address] [not provided] MTDD
--- NOTE | 2019-11-03 03:50 | PQF ---
SAP Compressor Station Engineer Crystal Reports Winform ViewerLEWIS SARAH NOVAEYAD DONIS [id number] CLINICAL DOCUMENTATION CLARIFICATION FORM: POST DISCHARGE Addendum to original discharge summary date: ____ Late entry note date: __ DATE: 11/03/2019 ATTN:EYAD MARQUES Please exercise your independent, professional judgment in responding to the clarification form. Clinical indicators are provided on the bottom of this form for your review Please check appropriate box(s): [ x ] Acute Respiratory Failure: [ x ] with Hypoxia[ ] with Hypercapnia [ ] Acute On Chronic Respiratory Failure: [ ] with Hypoxia [ ] with Hypercapnia [ ] Acute Respiratory Failure due to: (etiology) [ ] ARDS (Acute Respiratory Distress Syndrome) [ ] Chronic Respiratory Failure only [ ] with Hypoxia [ ] with Hypercapnia [ ] Hypoxia [ ] Other diagnosis [ ] Unable to determine In addition, please specify: Present on Admission (POA): [ x ] Yes [ ] No [ ] Unable to determine For continuity of documentation, please document condition throughout progress notes and discharge summary. Thank You. CLINICAL INDICATORS - SIGNS / SYMPTOMS / LABS Patient was subsequently transferred here due to Labile Blood Pressure and O2 Saturation - Documented in DS on 10/21 by EYAD MARQUES O2 Saturation 92% on 09/28 , 81% on 10/12 and 94% on 10/20 - Documented in Vital Signs Respiration rate 14 on 09/28 , 24 on 10/09 and 22 on 10/21 - Documented in Vital Signs After stent placement she had some complication with fluid overload, CHF and Respiratory Failure - Documented in DS on 10/21 by EYAD MARQUES RISK FACTORS Congestive heart failure - Documented in DS on 10/21 by EYAD MARQUES CAD with status post stenting - Documented in DS on 10/21 by EYAD MARQUES HTN TREATMENTS: O2 delivery Nasal Cannula on 10/09 and 10/13 - Documented in Documented in Vital Signs SAP Compressor Station Engineer Crystal Reports Winform Viewer (This form is maintained as a part of the permanent medical record) 2014 [employer]. All Rights Reserved [email or web address] [not provided] MTDD
== END 2019-10-21 18:30 | disposition home health service (06) | DRG 314 ==
LOC: MADMS 15:49
PROVIDERS: ADMIT Family Medicine; ATTEND Family Medicine
DX: I95.9 Hypotension, unspecified (principal); J96.01 Acute respiratory failure with hypoxia; I50.22 Chronic systolic (congestive) heart failure; R00.0 Tachycardia, unspecified; E11.9 Type 2 diabetes mellitus without complications; I25.10 Atherosclerotic heart disease of native coronary artery without angina pectoris; D64.9 Anemia, unspecified; Z95.5 Presence of coronary angioplasty implant and graft; R53.1 Weakness; Z88.2 Allergy status to sulfonamides; Z90.711 Acquired absence of uterus with remaining cervical stump; Z88.8 Allergy status to other drugs, medicaments and biological substances; Z90.49 Acquired absence of other specified parts of digestive tract; Z96.643 Presence of artificial hip joint, bilateral; K21.9 Gastro-esophageal reflux disease without esophagitis; J45.909 Unspecified asthma, uncomplicated; F03.90 Unspecified dementia, unspecified severity, without behavioral disturbance, psychotic disturbance, mood disturbance, and anxiety; Z66 Do not resuscitate
CPT/HCPCS: 36415; 36416; 71046; 80053; 83735; 83880; 84439; 84443; 85025; J7512; Q0162

== ENCOUNTER 2019-11-24 12:58 | Outpatient (CLI) | payer MEDICARE ==
--- NOTE | 2019-11-24 13:32 | RAD ---
EXAM: Chest 2 views: HISTORY: Pleural effusion COMPARISON: 10/18/2019 FINDINGS: There is a normal-sized cardiomediastinal silhouette. The pacemaker is unchanged in position. There is no evidence of consolidation, mass, or pleural effusion. The bones are unremarkable. IMPRESSION: No evidence of acute cardiopulmonary disease
[2019-11-24 13:44] LABS: #Basophils 0.1 thou/uL (0.0-0.2); #Eosinphils 0.3 thou/uL (0.0-0.7); #Lymphocytes 1.4 thou/uL (1.20-3.40); #Neutrophils 5.4 thou/uL (1.40-6.50); %Eosinophils 3.6 % (0.0-10.0); %Monocytes 12.7 % (0.0-10.0); %Neutrophils 65.8 % (42.0-75.0); Hemoglobin 12.3 g/dL (12.0-16.0); Mean Corpuscular HGB CONC 30.3 g/dL (32.0-36.0); Mean Corpuscular Hemoglobin 30.7 pg (27.0-31.0); Mean Corpuscular Volume 101.3 fL (78.0-98.0); Mean Platelet Volume 7.4 fL (7.4-10.4); Platelet Count 194 thou/uL (130-400); RBC Distribution Width 13.7 % (11.5-14.5); White Blood Cell (WBC) Count 8.2 thou/uL (4.8-10.8)
[2019-11-24 13:55] LABS: ALT (SGPT) 14 U/L (8-55); AST (SGOT) 20 U/L (5-34); Albumin 3.9 g/dL (3.4-4.8); Alkaline Phosphatase 53 U/L (40-110); Anion Gap 15 mmol/L (10-20); BUN (Urea Nitrogen) 19 mg/dL (9.8-20.1); Bilirubin, Total 0.4 mg/dL (0.2-1.2); Calc. Creatinine Clearance 0 mL/min (70-130); Calcium 9.4 mg/dL (7.8-10.44); Carbon Dioxide 24 mmol/L (23-31); Cardiac Risk 2.7 (Less than 4.5); Chloride 106 mmol/L (98-107); Cholesterol 167 mg/dl (< 200 Desired); Estimated GFR-MDRD 66; Globulin 3.3 g/dL (2.4-3.5); Glucose 152 mg/dL (83-110); HDL Cholesterol 63 mg/dL (>60 Neg Risk); LDL Cholesterol, Calculated 79 mg/dL; Potassium 4.5 mmol/L (3.5-5.1); Protein, Total 7.2 g/dL (6.0-8.3); Sodium 140 mmol/L (136-145); Triglycerides 127 mg/dL (Less than 150)
[2019-11-24 14:15] LABS: Thyroid Stimulating Hormone 4.6512 uIU/mL (0.35-4.94)
[2019-11-24 21:45] LABS: Hemoglobin A1c 6.1 % (4.0-6.0)
[2019-11-24 22:03] LABS: Creatinine, Urine 158.17 mg/dL (47-110); Microalbumin Urine 1.7 mg/dL (0.5-50.0); Microalbumin/Creat Ratio 10.7 mg/g (Less than 30)
[2019-11-24 22:06] LABS: Free T4 (Free Thyroxine) 1.07 ng/dL (0.70-1.48)
== END 2019-11-24 12:59 | disposition home or self-care (01) ==
LOC: MADLABBHPM 12:58
PROVIDERS: ATTEND Family Medicine
DX: J90 Pleural effusion, not elsewhere classified (principal); E11.9 Type 2 diabetes mellitus without complications; I10 Essential (primary) hypertension; D64.9 Anemia, unspecified; E03.9 Hypothyroidism, unspecified; E78.5 Hyperlipidemia, unspecified
CPT/HCPCS: 36415; 71046; 80053; 80061; 82043; 83036; 84439; 84443; 85025

== ENCOUNTER 2021-05-02 14:30 | Emergency (ER) | payer MEDICARE | END 2021-05-02 17:27 | disposition home or self-care (01) | LOC: MADERS 14:30 | DX: R68.84 Jaw pain (principal); E86.0 Dehydration; M19.90 Unspecified osteoarthritis, unspecified site; E05.00 Thyrotoxicosis with diffuse goiter without thyrotoxic crisis or storm; J45.909 Unspecified asthma, uncomplicated; M85.80 Other specified disorders of bone density and structure, unspecified site; M48.00 Spinal stenosis, site unspecified; E11.40 Type 2 diabetes mellitus with diabetic neuropathy, unspecified; E87.1 Hypo-osmolality and hyponatremia; I47.1 Supraventricular tachycardia; E11.649 Type 2 diabetes mellitus with hypoglycemia without coma; E03.9 Hypothyroidism, unspecified; K21.9 Gastro-esophageal reflux disease without esophagitis; Z79.899 Other long term (current) drug therapy; Z79.82 Long term (current) use of aspirin; Z79.891 Long term (current) use of opiate analgesic; Z79.84 Long term (current) use of oral hypoglycemic drugs | CPT/HCPCS: 99283 ==

== ENCOUNTER 2022-01-02 14:11 | Emergency (ER) | payer MEDICARE ==
[2022-01-02] MEDS ORDERED: Sodium Chloride 0.9% 500 ML ONE ×2 (15:28→17:10)
[2022-01-02 16:16] LABS: #Basophils 0.1 thou/uL (0.0-0.2); #Eosinphils 0.2 thou/uL (0.0-0.7); #Lymphocytes 1.5 thou/uL (1.20-3.40); #Monocytes 1.1 thou/uL (0.11-0.59); #Neutrophils 8.8 thou/uL (1.40-6.50); %Basophils 0.6 % (0.0-1.0); %Eosinophils 1.7 % (0.0-10.0); %Lymphocytes 12.8 % (21.0-51.0); %Monocytes 9.5 % (0.0-10.0); %Neutrophils 75.5 % (42.0-75.0); Hemoglobin 12.8 g/dL (12.0-16.0); Mean Corpuscular Hemoglobin 32.1 pg (27.0-31.0); Mean Corpuscular Volume 100.3 fL (78.0-98.0); Mean Platelet Volume 7.2 fL (7.4-10.4); Platelet Count 182 thou/uL (130-400); RBC Distribution Width 12.2 % (11.5-14.5); Red Blood Cell (RBC) Count 3.98 mill/uL (4.20-5.40); White Blood Cell (WBC) Count 11.7 thou/uL (4.8-10.8)
[2022-01-02 16:28] LABS: Phosphorus 3.9 mg/dL (2.3-4.7)
[2022-01-02 16:35] LABS: ALT (SGPT) 11 U/L (8-55); AST (SGOT) 19 U/L (5-34); Albumin 3.5 g/dL (3.4-4.8); Alkaline Phosphatase 66 U/L (40-110); Anion Gap 15 mmol/L (10-20); BUN (Urea Nitrogen) 18 mg/dL (9.8-20.1); Bilirubin, Total 0.4 mg/dL (0.2-1.2); CK (CPK) 25 U/L (29-168); Calc. Creatinine Clearance 0 mL/min (70-130); Calcium 9.5 mg/dL (7.8-10.44); Carbon Dioxide 26 mmol/L (23-31); Chloride 105 mmol/L (98-107); Globulin 3.1 g/dL (2.4-3.5); Glucose 143 mg/dL (83-110); Magnesium 2.1 mg/dL (1.6-2.6); Potassium 4.5 mmol/L (3.5-5.1); Protein, Total 6.6 g/dL (5.8-8.1); Sodium 141 mmol/L (136-145)
[2022-01-02] MEDS ORDERED: Amoxicillin/Potassium Clav 875 MG TAB ONE (18:16)
[2022-01-02] MEDS ORDERED: Azithromycin 500 MG VIAL ONE (18:16)
[2022-01-02] MEDS ORDERED: Sodium Chloride 0.9% 250 ML 250 ML ONE (18:16)
[2022-01-02 18:37] LABS: Lactic Acid 1.6 mmol/L (0.5-2.2)
== END 2022-01-02 22:40 | disposition home or self-care (01) ==
LOC: MADERS 14:11
DX: J18.9 Pneumonia, unspecified organism (principal); R53.1 Weakness; R55 Syncope and collapse; M19.90 Unspecified osteoarthritis, unspecified site; J45.909 Unspecified asthma, uncomplicated; E11.9 Type 2 diabetes mellitus without complications; I50.9 Heart failure, unspecified; E05.90 Thyrotoxicosis, unspecified without thyrotoxic crisis or storm; K21.9 Gastro-esophageal reflux disease without esophagitis; Z79.82 Long term (current) use of aspirin; Z79.899 Other long term (current) drug therapy; Z79.84 Long term (current) use of oral hypoglycemic drugs; Z79.52 Long term (current) use of systemic steroids
CPT/HCPCS: 36415; 71045; 80053; 82550; 83605; 83735; 84100; 84443; 85025; 87040; 93005; 94760; 96365; J0456; J7030; J7050